=== PATIENT | female | born 1955 | race Caucasian/White ===

== ENCOUNTER 2022-01-16 10:33 | Outpatient (CLI) | payer MEDICARE, BC, SELFPAY | END 2022-01-16 10:34 | disposition home or self-care (01) | LOC: NFLDUCREF 01-26 10:33 | PROVIDERS: Visit Provider Family Medicine | DX: R30.0 Dysuria (principal); N39.0 Urinary tract infection, site not specified | CPT/HCPCS: 87086; 87186 ==

== ENCOUNTER 2023-07-04 04:41 | Emergency (ER) | payer MEDICARE, BC, SELFPAY ==
[2023-07-04] VITALS (37 sets, daily range): BP systolic 112–155; BP diastolic 71–91; PULSE 60–80; RESP 12–18; TEMP 36.1–37.2; O2SAT 86–100; BMI 30.1
[2023-07-04 05:04] LABS: Appearance Urine Clear (Clear); Bilirubin Urine Negative (Negative); Blood Urine Trace-intact (Negative); Color Urine Yellow (Yellow); Glucose Urine Negative (Negative); Ketones Urine Negative (Negative); Leukocyte Esterase Urine Negative (Negative); Nitrite Urine Negative (Negative); Protein Urine Negative (Negative); Specific Gravity Urine 1.025 (1.000-1.030); Urobilinogen Urine 0.2 (0.2-1.0)
--- NOTE | 2023-07-04 05:07 | ED.ABDPAIN ---
HPI - Abdominal Pain General Date Seen: 07/04/23 Chief Complaint: Abdominal Pain Stated Complaint: Abdominal Pain Time Seen by Provider: 07/04/23 05:04 Source: patient and family Mode of arrival: ambulatory Limitations: no limitations History of Present Illness HPI narrative: Patient is a 59-year-old female presents here with approximately 6- 7 hour history of epigastric discomfort. She noted nausea but no vomiting. Pain is described as colicky in nature tenderness 10 it sometimes, but rate now 5/10. No radiation to her back, feels almost like heartburn also. Some mild chest pressure associated with this. Never before had pain like this, multiple previous abdominal operations with laparoscopy, appendectomy, vaginal hysterectomy, denies fevers chills or sweats, no dysuria frequency, bowel movements have been loose. Here with her . Does note she becomes very constipated with narcotic medication. History of hypertension, history of arthritis, history of depression. MD elicited complaint: abdominal pain Pertinent past history: past UTI Onset (ago): hour(s) Location: epigastric Severity: moderate Quality: cramping Radiation: none Migration to: no migration Exacerbating factors: nothing Relieving factors: nothing Associated symptoms: nausea Treatments prior to arrival: other (A my occurs all and Tums.) Related Data Patient : No Home Medications ?Medication ?Instructions ?Recorded ?Confirmed escitalopram oxalate 20 mg tablet 20 mg PO 01/16/22 01/16/22 gabapentin 100 mg capsule 300 mg PO QDAY 04/12/22 04/12/22 [id number] C-Mn 500 1 cap PO QDAY 04/12/22 04/12/22 mg-400 mg capsule triamterene 37.5 1 tab PO QDAY 04/12/22 04/12/22 mg-hydrochlorothiazide 25 mg tablet Previous Rx's ?Medication ?Instructions ?Recorded benzonatate 200 mg capsule 200 mg PO BID-TID PRN cough #14 04/12/22 caps Allergies Allergy/AdvReac Type Severity Reaction Status Date / Time No Known Drug Allergies Allergy Verified 04/12/22 12:07 Review of Systems Status of ROS Reports: 10 or more systems reviewed and unremarkable except as noted in History and below PFSH PFSH Social History Smoking Status: Never smoker Non-prescribed substance use: denies use Exam Narrative: Exam Narrative: I see her in room 3, she is in moderate distress, no scleral icterus redness, alert oriented x3. TMs are normal oropharynx normal. Chest is good air entry bilaterally with no wheezing crackles noted heart sounds are normal. Abdomen shows epigastric/right upper quadrant pain with a positive Colon sign, bowel sounds are normal, no organomegaly, obese. Moves all extremities independently well. Skin reveals no petechiae. Const: Vital Signs, click to edit/add: Vital Signs - 24 hr 07/04/23 04:52 07/04/23 06:06 07/04/23 06:07 Temperature 97 F L Pulse Rate 67 65 Pulse Rate [Pulse Oximeter] 70 Respiratory Rate 16 16 Blood Pressure 140/86 H Blood Pressure [Ri ght Upper Arm] 134/83 Pulse Oximetry 97 97 97 Oxygen Delivery Me thod Room Air Oxygen Flow Rate 07/04/23 06:15 07/04/23 06:16 07/04/23 06:30 Temperature Pulse Rate 65 67 63 Pulse Rate [Pulse Oximeter] Respiratory Rate 16 Blood Pressure 149/91 H Blood Pressure [Ri ght Upper Arm] Pulse Oximetry 86 L 97 98 Oxygen Delivery Me thod Nasal Cannula Nasal Cannula Oxygen Flow Rate 2 2 07/04/23 06:32 07/04/23 06:45 07/04/23 06:47 Temperature Pulse Rate 63 75 70 Pulse Rate [Pulse Oximeter] Respiratory Rate 16 18 Blood Pressure 155/90 H 132/81 Blood Pressure [Ri ght Upper Arm] Pulse Oximetry 94 95 96 Oxygen Delivery Me thod Nasal Cannula Nasal Cannula Nasal Cannula Oxygen Flow Rate 2 2 2 07/04/23 06:49 07/04/23 07:02 07/04/23 07:17 Temperature Pulse Rate 60 69 Pulse Rate [Pulse Oximeter] Respiratory Rate Blood Pressure 142/83 H 138/79 Blood Pressure [Ri ght Upper Arm] Pulse Oximetry 96 99 98 Oxygen Delivery Me thod Nasal Cannula Oxygen Flow Rate 2 07/04/23 07:32 07/04/23 07:38 07/04/23 07:44 Temperature Pulse Rate 62 66 68 Pulse Rate [Pulse Oximeter] Respiratory Rate Blood Pressure 144/80 H 143/82 H 129/77 Blood Pressure [Ri ght Upper Arm] Pulse Oximetry 98 98 96 Oxygen Delivery Me thod Oxygen Flow Rate 07/04/23 07:47 07/04/23 07:56 07/04/23 08:02 Temperature Pulse Rate 67 64 65 Pulse Rate [Pulse Oximeter] Respiratory Rate Blood Pressure 136/80 137/76 130/77 Blood Pressure [Ri ght Upper Arm] Pulse Oximetry 96 98 99 Oxygen Delivery Me thod Oxygen Flow Rate 07/04/23 08:03 07/04/23 08:12 Temperature 98.9 F Pulse Rate 65 Pulse Rate [Pulse Oximeter] Respiratory Rate 12 Blood Pressure Blood Pressure [Ri ght Upper Arm] Pulse Oximetry 100 Oxygen Delivery Me thod Oxygen Flow Rate Documenting provider has reviewed patient's vital signs: yes Course Reevaluation(s) Time of Reevaluation #1: 05:44 Reevaluation #1: Patient's point of care troponin is markedly elevated at 0.12, he point of care ultrasound is done. She appears to have wall motion abn of her apical area. No pericardial effusion. She does have cholelithiasis, but a negative sonographic Colon sign is noted. We will add in a lab troponin, D-dimer, coags, she has received the Dilaudid her pain is much better, given her aspirin also. Nitroglycerin. Starting heparin. It appears that this is an NSTEMI. I will contact Cardiology at [facility]. Time of Reevaluation #2: 06:48 Reevaluation #2: Patient's pain came back, she received Dilaudid nitroglycerin, her pain decreased. Her oxygen briefly went down to 86%, she is placed on nasal oxygen. Troponin has risen 2.3 on the lab troponin. Repeat EKG now 3. Shows no acute ST wave changes. Just some nonspecific ST wave changes. This is consistent with an NSTEMI. She remains on heparin. Time of Reevaluation #3: 08:14 Reevaluation #3: Patient continued to have chest pain, spoke to cardiology at [facility], we were able to get her a bed, we will go up in the nitroglycerin to 20 mcg, gave her little bit more Dilaudid. And transfer up here for acute coronary intervention Consultations Consultation #1: I spoke to Dr. Leung locksmith helper [facility] he accepted the patient in transfer with a diagnosis of an NSTEMI. Currently [place] has the 1-8 hour wait. Patient is markedly improved with medications currently with pain going from approximately an 8 to a 4. Time: 05:57 Vital Signs Vital signs: Initial Vital Signs Temperature 97 F L 07/04/23 04:52 Temperature Source Temporal Artery Scan 07/04/23 04:52 Pulse Rate 70 07/04/23 04:52 Respiratory Rate 16 07/04/23 04:52 Blood Pressure 134/83 07/04/23 04:52 Blood Pressure Mean 100 07/04/23 04:52 Blood Pressure Position Sitting 07/04/23 04:52 Pulse Oximetry 97 07/04/23 04:52 Oxygen Delivery Method Room Air 07/04/23 04:52 Vital Signs Temperature 97 F L 07/04/23 04:52 Pulse Rate 70 07/04/23 04:52 Respiratory Rate 16 07/04/23 04:52 Blood Pressure 134/83 07/04/23 04:52 Pulse Oximetry 97 07/04/23 04:52 Oxygen Delivery Method Room Air 07/04/23 04:52 Temperature 98.9 F 07/04/23 08:12 Pulse Rate 65 07/04/23 08:03 Respiratory Rate 12 07/04/23 08:12 Blood Pressure 130/77 07/04/23 08:02 Pulse Oximetry 100 07/04/23 08:03 Oxygen Delivery Method Nasal Cannula 07/04/23 06:49 Oxygen Flow Rate 2 07/04/23 06:49 Medications Administered Medications: Generic Name Dose Route Start Last Admin Trade Name Freq PRN Reason Stop Dose Admin Heparin Sodium/Dextrose 25,000 unit in 500 mls @ 0 mls/hr 07/04/23 05:45 07/04/23 05:54 Heparin IV 900 unit/hr .Q0M PHUC 18 mls/hr Administration Protocol Per Protocol Nitroglycerin/Dextrose 25,000 mcg in 250 mls @ 3 mls/hr 07/04/23 07:49 07/04/23 07:55 Nitroglycerin/Dextrose IVPB 5 mcg/min .TITRATE PRN 3 mls/hr Chest Pain Administration Protocol 5 MCG/MIN Discontinued Medications Generic Name Dose Route Start Last Admin Trade Name Freq PRN Reason Stop Dose Admin Aspirin 324 mg 07/04/23 05:26 07/04/23 05:30 Aspirin 81 Mg Tab.Chew PO 07/04/23 05:27 324 mg ONCE ONE Administration Heparin Sodium (Porcine) 4,000 unit 07/04/23 05:41 07/04/23 05:53 Heparin 5,000 Unit/0.5 Ml Inj IVP 07/04/23 05:42 4,000 unit ONCE ONE Administration Hydromorphone HCl 0.5 mg 07/04/23 05:04 07/04/23 05:29 Hydromorphone 0.5 Mg/0.5 Ml Inj IVP 07/04/23 05:05 0.5 mg ONCE ONE Administration Hydromorphone HCl 0.5 mg 07/04/23 07:48 07/04/23 07:57 Hydromorphone 0.5 Mg/0.5 Ml Inj IVP 07/04/23 07:49 0.5 mg ONCE ONE Administration Sodium Chloride 1,000 mls @ 1,000 mls/hr 07/04/23 05:15 07/04/23 06:40 0.9 % Sodium Chloride 1000 Ml IV 07/04/23 06:14 Infused .Q1H PHUC Infusion Nitroglycerin 0.4 mg 07/04/23 05:26 07/04/23 05:30 Nitroglycerin 0.4 Mg Tab.Subl SUBLINGUAL 07/04/23 05:27 0.4 mg ONCE ONE Administration Nitroglycerin 0.4 mg 07/04/23 06:50 07/04/23 06:41 Nitroglycerin 0.4 Mg Tab.Subl SUBLINGUAL 07/04/23 06:51 0.4 mg ONCE ONE Administration Ondansetron HCl 4 mg 07/04/23 05:04 07/04/23 05:29 Ondansetron 2 Mg/Ml Inj IVP 07/04/23 05:05 4 mg ONCE ONE Administration MDM - Abdominal Pain MDM Narrative Medical decision making narrative: During the evaluation of this patient I considered multiple differential diagnosis including life-threatening differentials which are appendicitis, aortic aneurysm, mesenteric ischemia, bowel perforation, ectopic , volvulus and bowel obstruction, other differential diagnosis include but are not limited to inflammatory bowel disease, cholecystitis, pancreatitis, hepatitis, gastritis, GERD, diverticulitis, peptic ulcer disease, pyelonephritis/UTI, renal colic/stone, pelvic inflammatory disease, cervicitis, endometritis, intrauterine , dysfunctional uterine bleeding, ovarian cyst/torsion, spontaneous as well as other etiologies IV will be started, blood test Dilaudid and Zofran will be used. Unfortunately her troponin came back markedly elevated, we had to switch gears. I think she is more likely as NSTEMI at this point. Differential Diagnosis Differential diagnosis: Likely abdominal pain, acute appendicitis, calculus of kidney, constipation, diverticulitis, endometriosis, gastroenteritis, pancreatitis and small bowel obstruction Medical Records Attestation: I reviewed the patient's medical records. Lab Data Attestation: I reviewed the patient's lab results. Labs: Lab Results 07/04/23 07/04/23 07/04/23 Range/Units 04:50 05:05 05:42 WBC 10.72 (4.50-11.00) K/uL RBC 4.56 (4.00-5.20) m/uL Hgb 14.3 (12.0-16.0) gm/dL Hct 42.3 (33.0-51.0) % MCV 93 (80-100) fL MCH 31 (26-34) pg MCHC 34 (32-36) gm/dL RDW Coeff of Tomas 12.2 (11.5-15.5) % Plt Count 272 (140-440) K/uL Neut % (Auto) 78.2 H (42.0-72.0) % Lymph % (Auto) 16.4 L (20-44) % [place] % (Auto) 3.5 (0.0-11.0) % Eos % (Auto) 1.6 (0.0-7.0) % Baso % (Auto) 0.2 (0.0-3.0) % Neut # (Auto) 8.40 H (1.7-7.0) K/uL Lymph # (Auto) 1.80 (0.90-2.90) K/uL [place] # (Auto) 0.40 (0.00-0.90) K/UL Eos # (Auto) 0.17 (0.00-0.50) K/uL Baso # (Auto) 0.02 (0.00-0.30) K/uL Abs Immat Gran (auto) 0.01 (0.00-0.30) K/uL Imm/Tot Granulo (auto) 0.1 % APTT 30 (23-33) Seconds D-Dimer Quant (PE/DVT) 0.87 H (0.00-0.50) ug/ml Sodium 136 (135-149) mmol/L Potassium 3.6 (3.6-5.1) mmol/L Chloride 106 (96-114) mmol/L Carbon Dioxide 23 (20-32) mmol/L Anion Gap 7 (7-15) mEq/L BUN 14 (7-30) mg/dL Creatinine 0.6 (0.5-1.5) mg/dL Estimated Creat Clear 44.54 Estimated GFR 98 ml/min Glucose 185 H (60-115) mg/dL Calcium 9.8 (8.4-10.6) mg/dL Total Bilirubin 0.6 (0.1-1.5) mg/dL Direct Bilirubin 0.0 (0.0-0.5) mg/dL AST 26 (12-35) U/L ALT 23 (4-35) U/L Alkaline Phosphatase 88 (40-150) U/L Troponin I 0.30 H* Cancelled (0.01-0.04) ng/mL C-Reactive Protein 0.9 (0.5-1.0) mg/dL Total Protein 7.3 (6.0-8.3) g/dL Albumin 4.4 (3.3-5.0) g/dL Amylase 76 (18-89) U/L Lipase 154 (23-300) U/L Urine Color Yellow (Yellow) Urine Appearance Clear (Clear) Urine pH 6.0 (5.0-8.5) Ur Specific [place] 1.025 (1.000-1.030) Urine Protein Negative (Negative) Urine Glucose (UA) Negative (Negative) Urine Ketones Negative (Negative) Urine Blood Trace-intact A (Negative) Urine Nitrite Negative (Negative) Urine Bilirubin Negative (Negative) Urine Urobilinogen 0.2 (0.2-1.0) Ur Leukocyte Esterase Negative (Negative) Urine RBC 0-2 (0-2) Urine WBC 2-5 (0-5) Ur Squamous Epith Cells Few (None-Few) Amorphous Sediment Few A (None) Urine Bacteria Few A (None) POC Troponin I 0.12 H (0.01-0.04) ng/ml Imaging Data Chest x-ray: Attestation: I have reviewed the pertinent imaging results. My impression: Chest x-ray shows no acute findings awaiting Radiology over-read. ECG Data Attestation: I personally reviewed and interpreted this ECG as follows: ECG interpretation date: 07/04/23 ECG interpretation time: 05:11 Prior ECG tracings: not available for review Interpretation: EKG shows normal sinus rhythm, with a ventricular rate of 70, no acute ST wave changes EKG 2. Done 1 hour after being here continues to be normal sinus rhythm with no acute changes. Critical Care Time Critical Care Time Critical Care Time: Yes Attestation: The patient required my highest level preparedness to intervene emergently and I personally spent this critical care time directly and personally managing the patient. This critical care time included: Obtaining a history; Examining the patient; Pulse oximetry; Ordering and reviewing of studies; Arranging urgent treatment with development of a management plan; Evaluation of patients response to treatment; Frequent reassessment discussions with other providers. This critical care time was performed to assess and manage the high probability of imminent life-threatening deterioration that could result in multiorgan failure. It was exclusive of separate billable procedures and treating other patients and teaching time. Total Critical Care Time in Minutes: 45 Discharge Plan Discharge Clinical Impression: Elevated troponin, Acute non-ST elevation myocardial infarction (NSTEMI), Cholelithiasis Patient Disposition: Xfer [facility] Discharge Location: [facility] Condition: Guarded Instructions: High Troponin Levels (ED) Prescriptions: No Action escitalopram oxalate 20 mg tablet 20 mg PO Patient Comments: TAKE ONE TABLET BY MOUTH ONE TIME DAILY gabapentin 100 mg capsule 300 mg PO QDAY Patient Comments: TAKE TWO CAPSULES BY MOUTH THREE TIMES DAILY benzonatate 200 mg capsule 200 mg PO BID-TID PRN (Reason: cough) Qty: 14 0RF triamterene-hydrochlorothiazid 37.5-25 mg tablet 1 tab PO QDAY [id number] C-Mn 500-400 mg capsule 1 cap PO QDAY Patient Comments: Glucosamine 1500mg/Chondroitin 1200mg Stand Alone Forms: MyHealth Info Instructions
[2023-07-04 05:12] LABS: Amorphous Sediment Urine Few; Bacteria Urine Few; RBC Urine 0-2 (0-2); Squamous Epithelial Cell Urine Few (None-Few)
[2023-07-04 05:18] LABS: Basophils Absolute Auto 0.02 K/uL (0.00-0.30); Basophils Percent Auto 0.2 % (0.0-3.0); Eosinophils Absolute Auto 0.17 K/uL (0.00-0.50); Eosinophils Percent Auto 1.6 % (0.0-7.0); Hematocrit 42.3 % (33.0-51.0); Hemoglobin* 14.3 gm/dL (12.0-16.0); Immature Granulocytes Abs Auto 0.01 K/uL (0.00-0.30); Immature Granulocytes Pct Auto 0.1 %; Lymphocytes Percent Auto 16.4 % (20-44); Mean Corpuscular HGB Conc 34 gm/dL (32-36); Mean Corpuscular Hemoglobin 31 pg (26-34); Mean Corpuscular Volume 93 fL (80-100); Monocytes Percent Auto 3.5 % (0.0-11.0); Neutrophils Percent Auto 78.2 % (42.0-72.0); Platelet Count* 272 K/uL (140-440); RDW Coefficient of Variation % 12.2 % (11.5-15.5); Red Blood Count 4.56 m/uL (4.00-5.20); White Blood Count* 10.72 K/uL (4.50-11.00)
[2023-07-04 05:22] LABS: Slide Review Reflex No
[2023-07-04 05:23] LABS: Troponin, Point-of-Care* 0.12 ng/ml (0.01-0.04)
--- NOTE | 2023-07-04 05:28 | CRLHL7_ITS ---
For Patients: As a result of the Century Cures Act, medical imaging exams and procedure reports are released immediately into your electronic medical record. You may view this report before your referring provider. If you have questions, please contact your health care provider. Indication: Chest and epigastric pain. Technique: One view(s) of the chest. Comparison: None available. Findings: Normal cardiomediastinal silhouette and pulmonary vasculature. Lungs are well inflated and clear. No focal consolidation, pleural effusion or pneumothorax. No acute osseous abnormality. Impression: No acute cardiopulmonary abnormality identified. Dictated by Sherley Massey MD @ 07/04/2023 6:15:56 AM (Electronically Signed)
[2023-07-04] MEDS: 0.9 % SODIUM CHLORIDE 1000 ml 1,000 ML IV (05:29)
[2023-07-04] MEDS: HYDROmorphone 0.5 mg/0.5 ml inj IVP ×2 (05:29→07:57)
[2023-07-04] MEDS: ONDANSETRON 2 MG/ML inj 4 MG IVP (05:29)
[2023-07-04] MEDS: ASPIRIN 81 MG TAB.CHEW 324 MG PO (05:30)
[2023-07-04] MEDS: NITROGLYCERIN 0.4 MG TAB.SUBL SUBLINGUAL ×3 (05:30→07:37)
[2023-07-04 05:32] LABS: Albumin* 4.4 g/dL (3.3-5.0); Chloride* 106 mmol/L (96-114); Sodium* 136 mmol/L (135-149)
[2023-07-04 05:33] LABS: Potassium* 3.6 mmol/L (3.6-5.1)
[2023-07-04 05:34] LABS: Amylase* 76 U/L (18-89); Creatinine* 0.6 mg/dL (0.5-1.5); Est. Creatinine Clearance* 44.54; Estimated Glomerular Filt Rate 98 ml/min
[2023-07-04 05:35] LABS: Alanine Aminotransferase* 23 U/L (4-35); Alkaline Phosphatase* 88 U/L (40-150); Anion Gap 7 mEq/L (7-15); Aspartate Amino Transferase* 26 U/L (12-35); Bilirubin Total* 0.6 mg/dL (0.1-1.5); Blood Urea Nitrogen* 14 mg/dL (7-30); Carbon Dioxide* 23 mmol/L (20-32); Glucose* 185 mg/dL (60-115); Lipase* 154 U/L (23-300); Total Protein* 7.3 g/dL (6.0-8.3)
[2023-07-04 05:36] LABS: Calcium* 9.8 mg/dL (8.4-10.6)
[2023-07-04 05:38] LABS: C Reactive Protein* 0.9 mg/dL (0.5-1.0)
[2023-07-04] MEDS: HEPARIN 5,000 UNIT/0.5 ML INJ 4000 UNIT IVP (05:53)
[2023-07-04] MEDS: HEPARIN 25,000 UNIT/500 ML BAG 18 UNIT IV (05:54)
[2023-07-04 06:06] LABS: Partial Thromboplastin Time* 30 Seconds (23-33)
[2023-07-04 06:07] LABS: D Dimer Quantitative* 0.87 ug/ml (0.00-0.50)
[2023-07-04] MEDS: NITROGLYCERIN/DEXTROSE 25,000 MCG/250 ML BOTTLE 3 MCG IVPB (07:55)
== END 2023-07-04 09:16 | disposition short-term general hospital (02) ==
PROVIDERS: Emergency Provider Family Medicine
DX: I21.4 Non-ST elevation (NSTEMI) myocardial infarction (principal)
CPT/HCPCS: 36415; 71045; 80048; 80076; 81001; 82150; 83690; 84484; 85025; 85379; 85730; 86140; 87086; 93005; 96374; 96375; 99285; 99291; A9270; J1170; J1644; J2405; J7030

== ENCOUNTER 2023-07-04 08:57 | Outpatient (CLI) | payer MEDICARE, BC, SELFPAY | END 2023-07-04 08:58 | disposition home or self-care (01) | LOC: AMB 07-11 09:28 | PROVIDERS: Visit Provider Family Medicine | DX: I21.4 Non-ST elevation (NSTEMI) myocardial infarction (principal) | CPT/HCPCS: A0425; A0434 ==

== ENCOUNTER 2023-11-21 16:00 | Outpatient (RCR) | payer MEDICARE, BC, SELFPAY | END 2024-01-24 13:02 | disposition home or self-care (01) | PROVIDERS: Visit Provider Physician Assistant | DX: M54.50 Low back pain, unspecified (principal); M25.552 Pain in left hip; M47.812 Spondylosis without myelopathy or radiculopathy, cervical region; M54.2 Cervicalgia; M25.60 Stiffness of unspecified joint, not elsewhere classified; Z51.89 Encounter for other specified aftercare | CPT/HCPCS: 97110; 97140; 97161; 97162 ==

== ENCOUNTER 2024-03-06 09:10 | Emergency (ER) | payer MEDICARE, BC, SELFPAY ==
[2024-03-06 09:12] VITALS: BP 106/71; PULSE 81; RESP 16; TEMP 36.7; O2SAT 97; BMI 31.5
--- NOTE | 2024-03-06 09:45 | ED.GENADULT ---
HPI - General Adult General Date Seen: 03/06/24 Chief complaint: Chest Pain Stated complaint: Chest pain Time Seen by Provider: 03/06/24 09:28 History of Present Illness HPI narrative: 68-year-old female per the history of NSTEMI (diagnosed in June 2023 here in the ER), hypertension, hyper thyroid without goiter), hyperlipidemia, colon polyps, lumbar stenosis, osteoarthritis, sleep apnea, restless legs, hysterectomy It looks like she gets care through the [facility] system and some care through the [facility] system. I have some records through [facility]. After and STEMI diagnosed here in [facility] in June 2023. She had workup with [facility].On arrival to the [facility] her vitals were within normal limits with the exception of an isolated charted saturation of 88% on room air. She was found to have elevated and rising troponins (0.1 to 0.3, URL 0.04) with normal ECGs. Her chest pain decreased with a nitroglycerin drip. She was given full-dose aspirin, started on a therapeutic heparin drip, and transferred to [facility] for further management. ? On arrival her vitals were within normal limits. She reported 2/10 chest pain that is worse than when she was transferred, which roughly coincided with her nitroglycerin drip running out. HS troponin 101->87. EKG SR w/ t wave inversion V1, V2. Coronary angiogram 07/04 normal cors. TTE LVEF 55-60%, no sig WMA. . She was manage medically. She has had follow-up visits with Cardiology since then. She underwent laparoscopic cholecystectomy on 01/26/2024. She says that she had previously known gallstones and with her symptoms of frequent episodes of right-sided chest pain they just wanted to take her gallstones out so that they would not ever become larger problem. Her pain is really not gotten better since the surgery so it seems like her gallstones were probably not the culprit. She says she has had follow-up ultrasound since the surgery the confirms no residual common bile duct stones. She had a visit with Dr. Kelley on 02/07/2024 for sternal pain. Apparently has been experiencing and some last summer, initially attributed to gallstones. She had had cholecystectomy but pain persists. Pain on the right side of the sternum, worse with pressing. At that time, pain was thought to be due to costochondritis. History from the patient is that she does have episodes of right-sided sternal discomfort almost every day. It has been present for several months or even over a year. In addition to that she has body aches, hip pain, joint aches. She does not regularly take pain meds but did take an oxycodone last night because her hip and leg were hurting her. She was not really having any chest discomfort yesterday evening. She was awoken from sleep at about 5:00 a.m. with a more severe episode of discomfort in her right chest. In addition to being sharp but also felt like a pressure, but not ?like an elephant?. It was associated with dizziness and sweatiness. No nausea. No palpitations. Since it was different and more intense than her typical episodes she called her clinic and was referred here to the ER. She says she is feeling at much better now. Were No new swelling in her legs. No recent travel or immobilization. Her call blow surgery was about 6 weeks ago. Related Data Home Medications ?Medication ?Instructions ?Recorded ?Confirmed escitalopram oxalate 20 mg tablet 20 mg PO 01/16/22 01/16/22 gabapentin 100 mg capsule 300 mg PO QDAY 04/12/22 03/06/24 cytenggpeet-ckwqgwqpu-vjc C-Mn 500 1 cap PO QDAY 04/12/22 04/12/22 mg-400 mg capsule triamterene 37.5 1 tab PO QDAY 04/12/22 04/12/22 mg-hydrochlorothiazide 25 mg tablet amlodipine 2.5 mg tablet 2.5 mg PO DAILY 03/06/24 03/06/24 aspirin 81 mg tablet,delayed 81 mg PO DAILY 03/06/24 03/06/24 release (Adult Aspirin Regimen) metoprolol succinate 25 mg 25 mg PO DAILY 03/06/24 03/06/24 tablet,extended release 24 hr Previous Rx's ?Medication ?Instructions ?Recorded benzonatate 200 mg capsule 200 mg PO BID-TID PRN cough #14 04/12/22 caps Allergies Allergy/AdvReac Type Severity Reaction Status Date / Time rosuvastatin (From Crestor) Allergy Intermediate Verified 03/06/24 11:55 PFSH PFS Social History Smoking Status: Never smoker How often do you have a drink containing alcohol: never How often do you have six or more drinks on one occasion: Never AUDIT-C Alcohol total score: 0 Non-prescribed substance use: denies use service: No Exam Narrative: Exam Narrative: Constitutional: Appears well-developed and well-nourished. Alert. Conversant. Non toxic. HENT: Head: Atraumatic. Nose: Nose normal. Mouth/Throat: Oral mucosa is clear and moist. no trismus. Pharynx normal. Eyes: Conjunctivae normal. EOM normal. Pupils equal, round, and reactive to light. No scleral icterus. Neck: Normal range of motion. Neck supple. No tracheal deviation present. No JVD Cardiovascular: Normal rate, regular rhythm. No gallop. No friction rub. No murmur heard. Symmetric radial and PT artery pulses Pulmonary/Chest: Effort normal. No stridor. No respiratory distress. No wheezes. No rales. No rhonchi . No tenderness. Abdominal: Soft, . No distension. No mass. No tenderness. No rebound. No guarding. Musculoskeletal: RUE: Normal range of motion. No tenderness. No deformity LUE: Normal range of motion. No tenderness. No deformity RLE: Normal range of motion. No edema. No tenderness. No deformity LLE: Normal range of motion. No edema. No tenderness. No deformity Neurological: Alert and oriented to person, place, and time. Normal strength. CN II-VII intact. No sensory deficit. GCS eye subscore is 4. GCS verbal subscore is 5. GCS motor subscore is 6. Normal coordination Skin: Skin is warm and dry. No rash noted. No pallor. Normal capillary refill. Psychiatric: Normal mood. Normal affect. Const: Vital Signs, click to edit/add: Vital Signs - 24 hr 03/06/24 09:12 Temperature 98.1 F Pulse Rate [Pulse Oximeter] 81 Respiratory Rate 16 Blood Pressure [Ri ght Upper Arm] 106/71 Pulse Oximetry 97 Oxygen Delivery Me thod Room Air Course Course ED Course: Recheck-remains comfortable and symptom free. Hemodynamically stable. now her bedside Reevaluation(s) Reevaluation #1: Recheck-repeat troponin back. Discussed troponins and CT findings with the patient. Vital Signs Vital signs: Initial Vital Signs Temperature 98.1 F 03/06/24 09:12 Temperature Source Temporal Artery Scan 03/06/24 09:12 Pulse Rate 81 03/06/24 09:12 Respiratory Rate 16 03/06/24 09:12 Blood Pressure 106/71 03/06/24 09:12 Blood Pressure Mean 82 03/06/24 09:12 Blood Pressure Position Sitting 03/06/24 09:12 Pulse Oximetry 97 03/06/24 09:12 Oxygen Delivery Method Room Air 03/06/24 09:12 Vital Signs Temperature 98.1 F 03/06/24 09:12 Pulse Rate 81 03/06/24 09:12 Respiratory Rate 16 03/06/24 09:12 Blood Pressure 106/71 03/06/24 09:12 Pulse Oximetry 97 03/06/24 09:12 Oxygen Delivery Method Room Air 03/06/24 09:12 Temperature 98.1 F 03/06/24 09:12 Pulse Rate 81 03/06/24 09:12 Respiratory Rate 16 03/06/24 09:12 Blood Pressure 106/71 03/06/24 09:12 Pulse Oximetry 97 03/06/24 09:12 Oxygen Delivery Method Room Air 03/06/24 09:12 Medications Administered Medications: Discontinued Medications Generic Name Dose Route Start Last Admin Trade Name Lukaszq PRN Reason Stop Dose Admin Aspirin 162 mg 03/06/24 10:09 03/06/24 10:17 Aspirin 81 Mg Tab.Chew PO 03/06/24 10:10 162 mg ONCE ONE Administration Medical Decision Making MDM Narrative Medical decision making narrative: This patient presents to the ER today for evaluation of chest pain[]. Differential was broad. No evidence of palpitations, syncope or other cardiac dysrhythmia. We considered possible ACS, however workup with EKG and troponin is negative. Given time since onset of symptoms, we did check 2 hour delta troponins. I do not think the patient needs to be admitted for further sets of enzymes. EKG shows no evidence for pericarditis. Clinical presentation not suggestive of myocarditis. Chest x-ray shows no evidence for pneumonia, pneumothorax, pulmonary edema, pleural effusion, rib fracture, cardiomegaly. We considered PE for this patient. Her only risk factor would be recent surgery for gallbladder about 6 weeks ago. Abnormal age adjusted D-dimer prompted CT pulmonary angiogram. CT is negative for PE. It does reveal some aortic ectasia (no evidence for dissection or rupture). This was previously known to the patient. She is provided with digital copies of her CT imaging will follow-up with her PCP for comparison. Will need surveillance of the aortic ectasia going forward. I do not think that her pain represents an acute aortic emergency today. Mediastinum is normal on the x-ray. The patient has no ripping or tearing pain through to the back and has symmetric pulses on exam, no other acute neuro findings so I doubt aortic dissection. Risk of radiation and repeat contrast exposure would outweigh the benefit of CT angiogram. No wheezing or bronchospasm to suggest COPD/asthma. No signs of chest wall cellulitis, shingles, injury. It is possible that her pain could be related to costochondritis. She has been having episodes of pain almost every day for several months. Also consider possible esophagitis. She will follow-up with her PCP and consider arranging outpatient EGD. With reasonable clinical confidence, I think the patient is safe for outpatient follow up. Discussed return precautions. Questions answered. Patient voices comfort with the plan. Lab Data Labs: Lab Results 03/06/24 03/06/24 03/06/24 Range/Units 10:10 10:25 12:30 D-Dimer Quant (PE/DVT) 0.79 H (0.00-0.50) ug/ml Sodium 139 (135-149) mmol/L Potassium 4.2 (3.6-5.1) mmol/L Chloride 107 (96-114) mmol/L Carbon Dioxide 25 (20-32) mmol/L Anion Gap 7 (7-15) mEq/L BUN 18 (7-30) mg/dL Creatinine 0.6 (0.5-1.5) mg/dL Estimated Creat Clear 43.92 Estimated GFR 97 ml/min Glucose 115 (60-115) mg/dL Calcium 9.3 (8.4-10.6) mg/dL Total Bilirubin 0.3 (0.1-1.5) mg/dL AST 28 (12-35) U/L ALT 26 (4-35) U/L Alkaline Phosphatase 70 (40-150) U/L Total Protein 6.1 (6.0-8.3) g/dL Albumin 3.9 (3.3-5.0) g/dL Lipase 73 (23-300) U/L POC Troponin I 0.00 L 0.00 L (0.01-0.04) ng/ml Imaging Data CT scan - chest: Attestation: I have reviewed the pertinent imaging results. Radiologist's impression: IMPRESSION: 1. No evidence of acute pulmonary embolus, within limitations of motion artifact. Distal segmental and subsegmental pulmonary arteries are not well evaluated. 2. No focal consolidation. No evidence of pulmonary infarct. 3. Mild cardiomegaly. Ectasia of the ascending thoracic aorta, measuring up to 4.0 cm. Discharge Plan Discharge Clinical Impression: Chest pain, Aortic ectasia, thoracic Patient Disposition: Home, Self-Care Condition: Stable Instructions: Chest Pain (DC) Additional Instructions: As we discussed, so far the workup here chest pain looks reassuring. However, monitor your symptoms carefully and if you have worsening chest pain, nausea or dizziness or shortness of breath, or other concerning symptoms, please come back to the ER right away to be rechecked. Please follow-up with regular doctor within 1 week. Ask your doctor if they think it would be beneficial to have an endoscopy to evaluate your esophagus. Prescriptions: No Action escitalopram oxalate 20 mg tablet 20 mg PO Patient Comments: TAKE ONE TABLET BY MOUTH ONE TIME DAILY gabapentin 100 mg capsule 300 mg PO QDAY Patient Comments: TAKE TWO CAPSULES BY MOUTH THREE TIMES DAILY benzonatate 200 mg capsule 200 mg PO BID-TID PRN (Reason: cough) Qty: 14 0RF triamterene-hydrochlorothiazid 37.5-25 mg tablet 1 tab PO QDAY ckpsehhyquj-rnxdtbwmv-usz C-Mn 500-400 mg capsule 1 cap PO QDAY Patient Comments: Glucosamine 1500mg/Chondroitin 1200mg amlodipine 2.5 mg tablet 2.5 mg PO DAILY metoprolol succinate 25 mg tablet extended release 24 hr 25 mg PO DAILY aspirin [Adult Aspirin Regimen] 81 mg tablet,delayed release (DR/EC) 81 mg PO DAILY Follow Up/Referrals: Cristine Castorena MD [Primary Care Provider] - Stand Alone Forms: MyHealth Info Instructions
[2024-03-06] MEDS: ASPIRIN 81 MG TAB.CHEW 162 MG PO (10:17)
[2024-03-06 10:46] LABS: Albumin* 3.9 g/dL (3.3-5.0); Chloride* 107 mmol/L (96-114); Sodium* 139 mmol/L (135-149)
[2024-03-06 10:47] LABS: Potassium* 4.2 mmol/L (3.6-5.1)
[2024-03-06 10:49] LABS: Alanine Aminotransferase* 26 U/L (4-35); Alkaline Phosphatase* 70 U/L (40-150); Anion Gap 7 mEq/L (7-15); Aspartate Amino Transferase* 28 U/L (12-35); Bilirubin Total* 0.3 mg/dL (0.1-1.5); Blood Urea Nitrogen* 18 mg/dL (7-30); Carbon Dioxide* 25 mmol/L (20-32); Creatinine* 0.6 mg/dL (0.5-1.5); Est. Creatinine Clearance* 43.92; Estimated Glomerular Filt Rate 97 ml/min; Glucose* 115 mg/dL (60-115); Lipase* 73 U/L (23-300); Total Protein* 6.1 g/dL (6.0-8.3)
[2024-03-06 10:50] LABS: Calcium* 9.3 mg/dL (8.4-10.6)
[2024-03-06 10:53] LABS: D Dimer Quantitative* 0.79 ug/ml (0.00-0.50)
--- OUTSIDE RECORDS SUMMARY | 2024-03-07 13:41 | XMS_ITS | Encounter Summary ---
Author Organization [facility] Address [address] [place] [address]. [place] [address] Care Team Providers Care Insurance And Benefits Clerk Name Role Phone Peng Hubbard MD Unavailable [phone] Yamila Joe See Tuan BERRY Unavailable Cristine Castorena MD Primary Care Provider [phone] Yamila Joe See Tuan BERRY Unavailable [phone] Corbin Andre MD Unavailable Yamila Joe See Tuan BERRY Unavailable Valerie Shin MD Unavailable Adrian Martínez MD Unavailable Magdalena Fonseca Unavailable [phone] Adrian Martínez MD Unavailable Reason for Visit * Reason Onset Date Comments Symptoms 06/18/2021 Encounter Details Date Type Department Care Team (Late st Contact Info) Description 06/18/2021 Telephone [facility] [address] [place] [address] Corbin Andre MD [address] [facility] [address] [place] [address] Symptoms Social History Tobacco Use Types Packs/Day Years Used Date Smoking Tobacco: Never Smokeless Tobacco: Never Alcohol Use Standard Drinks/Week Comments Yes 0 (1 standard drink = 0.6 oz pur e alcohol) 2 drinks per month PHQ-2 Answer Date Recorded PHQ-2 Score 0 04/29/2021 Comments No Sex and Gender Information Value Date Recorded Sex Assigned at Female 01/12/2021 8:43 AM PATTERN DESIGNER Legal Sex Female 3:39 AM PATTERN DESIGNER Gender Identity Female 01/12/2021 8:43 AM PATTERN DESIGNER Sexual Orientation Straight 01/12/2021 8: 43 AM PATTERN DESIGNER COVID-19 Exposure Response Date Recorded In the last 10 days, have yo u been in contact with someone who was confirmed or suspected to have Coronavirus/COVID-19? No / Unsure 06/19/2021 10:56 AM CDT documented as of this encounter Miscellaneous Notes * Telephone Encounter - Siomara Diaz CMA - 06/18/2021 9:55 AM CDT LM FOR PT TO CALL BACK. Angelica Diaz CMA * Telephone Encounter - Celia Roblero - 06/18/2021 9:39 AM CDT [facility] Phone Message May a detailed message be left on voicemail: yes Reason for Call: Symptoms or Concerns If patient has red-flag symptoms, warm transfer to triage line Current symptom or concern: Kidney stone removed on 06/12/21. Stent removal scheduled for 06/19/21. Patient is currently having pain on right lower belly. Wondering if this is poking into her bladder wall. When sitting, pain level is at 4, when doing anything else, pain level at 8. Symptoms have been present for: 1 week(s) Has patient previously been seen for this? No Are there any new or worsening symptoms? Yes: lower belly pain Action Taken: Message routed to: [facility] Urology Travel Screening: Not Applicable documented in this encounter Plan of Treatment Upcoming Encounters Date Type Department Care Team (Late st Contact Info) Description 02/18/2025 9:30 AM PATTERN DESIGNER Office Visit [facility] [address] [facility] [address] [place] [phone] Valerie Shin MD [address] [facility] [address] [place] [address] 02/18/2025 10:00 AM PATTERN DESIGNER Ancillary Procedure [facility] [address] [facility], [address] [place] [phone] documented as of this encounter Visit Diagnoses Not on filedocumented in this encounter Additional Health Concerns Assessment Noted Time PHQ-9 Depression Total Score: 4 01/16/20 21 3:10 PM PATTERN DESIGNER documented as of this encounter Care Teams Insurance And Benefits Clerk Relationship Specialty Start Date End Date Cristine Castorena MD [address] [address] PCP - General 04/24/21 [place] [address] [place] [address] Assigned OBGYN Provider 11/30/1901/22 [place] [address] [place] [address] Urology 04/14/21 Yamila Joe MD [address] [place] [address] [address] [place] [address] Assigned Surgical Provider 05/03/21 Corbin Andre MD [address] [place] [address] Assigned Surgical Provider 06/21/2111/28 Yamila Joe MD [address] [facility] [address] [place] [address] Assigned Surgical Provider 07/18/21 Valerie Shin MD [address] [place] [address] Assigned OBGYN Provider 01/23/22 Adrian Martínez MD [address] [facility] [address] [place] [address] Colon & Rectal 02/11/23 Magdalena Fonseca EP [facility] [address] [place] [address] Cardiac Rehabilitation Therapist 08/25/23 08/24/24 Adrian Martínez MD [address] [facility] [address] [place] [address] Assigned Surgical Provider 09/30/23 documented as of this encounter
--- OUTSIDE RECORDS SUMMARY | 2024-03-07 13:41 | XMS_ITS | Encounter Summary ---
Author Organization [facility] Address [address] [place] [address]. [place] [address] Care Team Providers Care Culled Fruit Packer Name Role Phone Peng Hubbard MD Unavailable [phone] Yamila Joe See Tuan BERRY Unavailable Cristine Castorena MD Primary Care Provider [phone] Yamila Joe See Tuan BERRY Unavailable [phone] Corbin Andre MD Unavailable Yamila Joe See Tuan BERRY Unavailable Valerie Shin MD Unavailable Adrian Martínez MD Unavailable Magdalena Fonseca Unavailable [phone] Adrian Martínez MD Unavailable Encounter Details Date Type Department Care Team (Late st Contact Info) Description 06/02/2021 [facility] [place] [facility] Centralized Scheduling [facility] [place] [address] Malachi Howell Social History Tobacco Use Types Packs/Day Years Used Date Smoking Tobacco: Never Smokeless Tobacco: Never Alcohol Use Standard Drinks/Week Comments Yes 0 (1 standard drink = 0.6 oz pur e alcohol) occas PHQ-2 Answer Date Recorded PHQ-2 Score 0 04/29/2021 Comments No Sex and Gender Information Value Date Recorded Sex Assigned at Female 01/12/2021 8:43 AM SIGHTER Legal Sex Female 3:39 AM SIGHTER Gender Identity Female 01/12/2021 8:43 AM SIGHTER Sexual Orientation Straight 01/12/2021 8: 43 AM SIGHTER COVID-19 Exposure Response Date Recorded In the last 10 days, have yo u been in contact with someone who was confirmed or suspected to have Coronavirus/COVID-19? No / Unsure 05/22/2021 10:03 AM CDT documented as of this encounter Plan of Treatment Upcoming Encounters Date Type Department Care Team (Late st Contact Info) Description 02/18/2025 9:30 AM SIGHTER Office Visit [address] [phone] Valerie Shin MD [address] [address] 02/18/2025 10:00 AM SIGHTER Ancillary Procedure [address] [phone] documented as of this encounter Visit Diagnoses Not on filedocumented in this encounter Additional Health Concerns Assessment Noted Time PHQ-9 Depression Total Score: 4 01/16/20 21 3:10 PM SIGHTER documented as of this encounter Care Teams Culled Fruit Packer Relationship Specialty Start Date End Date Cristine Castorena MD [facility] [address] [place] [address] PCP - General 04/24/21 [place] [address] [place] [address] Assigned OBGYN Provider 11/30/1901/22 [place] [address] [place] [address] Urology 04/14/21 Yamila Joe MD [address] [facility] [address] [place] [address] Assigned Surgical Provider 05/03/21 Corbin Andre MD [address] [place] [address] Assigned Surgical Provider 06/21/2111/28 Yamila Joe MD [address] [address] Assigned Surgical Provider 07/18/21 Valerie Shin MD [address] [place] [address] Assigned OBGYN Provider 01/23/22 Adrian Martínez MD [address] [facility] [address] [place] [address] Colon & Rectal 02/11/23 Magdalena Fonseca EP [facility] [address] [place] [address] Cardiac Rehabilitation Therapist 08/25/23 08/24/24 Adrian Martínez MD [address] [facility] [address] [place] [address] Assigned Surgical Provider 09/30/23 documented as of this encounter
--- OUTSIDE RECORDS SUMMARY | 2024-03-07 13:42 | XMS_ITS | Continuity of Care Document ---
Author Organization [facility] Address [address] [place] [address] Phone Care Team Providers Care Banana Loader Name Role Phone Unavailable Unavailable Unavailable Procedures Procedure Date Office/Outpatient Visit,[facility] 2011 Advance Directives Directive Yes / No Effective Date File Name No Information Encounters Encounter Description Practice Location Reason(s) For Visit Diagnoses Date Provider Providers Copied on Encounter [facility], [address], [facility], tel:[phone] [employer] [facility] [place] No Information 9 2 No Information Office/Outpat ient Visit,[facility], [address], [facility], tel:[phone] [facility] [place] No Information [address] [employer], [address] [place] [address], [address], [id number], . tel:[phone] Family History Family Member Type Diagnosis Age At Onset No Information Payers Payer name Insurance type Covered libertarian ID Authoriza tion(s) [employer] [id number] Social History Type Description Quantity Date Captured Comments Sex Female Smoking Status No Information Chief Complaint And Reason For Visit No Information Reason For Referral Reason For Referral No Information History Of Present Illness Encounter Date Complaint History Of Prese nt Illness No Information Functional Status Date Functional Assessmen t No Information Instructions Date Instruction Additional Infor mation No Information Assessments Type Assessment Date No Information Patient Care Teams Name Effective Dates (start - stop) Status Members No Information
--- OUTSIDE RECORDS SUMMARY | 2024-03-07 13:42 | XMS_ITS | Encounter Summary ---
Author Organization [place] Address [facility] [place] [address] Care Team Providers Care Well Head Pumper Name Role Phone Yamila Joe MD Unavailable [phone] Cristine Castorena MD Primary Care Provider [phone] Yamila Joe MD Unavailable Valerie Shin MD Unavailable Adrian Martínez MD Unavailable Magdalena Fonseca Unavailable Adrian Martínez MD Unavailable Encounter Details Date Type Department Care Team (Late st Contact Info) Description 03/02/2022 [facility] [place] [address] [place] [address] [address] [place] [address] Yamila Joe MD 420 [facility] [address] [place] [address] Social History Tobacco Use Types Packs/Day Years Used Date Smoking Tobacco: Never Smokeless Tobacco: Never Alcohol Use Standard Drinks/Week Comments Yes 0 (1 standard drink = 0.6 oz pur e alcohol) 2 drinks per month PHQ-2 Answer Date Recorded PHQ-2 Score 0 01/19/2022 Comments No Sex and Gender Information Value Date Recorded Sex Assigned at Female 01/12/2021 8:43 AM MEAT DRESSER Legal Sex Female 3:39 AM MEAT DRESSER Gender Identity Female 01/12/2021 8:43 AM MEAT DRESSER Sexual Orientation Straight 01/12/2021 8: 43 AM MEAT DRESSER COVID-19 Exposure Response Date Recorded In the last 10 days, have yo u been in contact with someone who was confirmed or suspected to have Coronavirus/COVID-19? Unable to assess 03/02/2022 2:04 PM MEAT DRESSER documented as of this encounter Plan of Treatment Upcoming Encounters Date Type Department Care Team (Late st Contact Info) Description 02/18/2025 9:30 AM MEAT DRESSER Office Visit [address] [phone] Valerie Shin MD [address] [address] 02/18/2025 10:00 AM MEAT DRESSER Ancillary Procedure [facility] [address] [place] [address], [address] [phone] documented as of this encounter Visit Diagnoses Not on filedocumented in this encounter Additional Health Concerns Assessment Noted Time PHQ-9 Depression Total Score: 0 01/20/20 22 9:34 AM MEAT DRESSER documented as of this encounter Care Teams Well Head Pumper Relationship Specialty Start Date End Date Cristine Castorena MD [address] [address] PCP - General 04/24/21 Yamila Joe MD Urology 04/14/21 Yamila Joe MD [address] [place] [address] Assigned Surgical Provider 07/18/21 Valerie Shin MD [address] [facility] [address] [place] [address] Assigned OBGYN Provider 01/23/22 Adrian Martínez MD 420 [facility] [address] [place] [address] Colon & Rectal 02/11/23 Magdalena Fonseca EP [facility] [address] [address] Cardiac Rehabilitation Therapist 08/25/23 08/24/24 Adrian Martínez MD [address] [address] Assigned Surgical Provider 09/30/23 documented as of this encounter
--- OUTSIDE RECORDS SUMMARY | 2024-03-07 13:42 | XMS_ITS | Encounter Summary ---
Author Organization [place] Address [address] [place] [address]. [place] [address] Care Team Providers Care Food Truck Caterer Name Role Phone Yamila Joe MD Unavailable [phone] Cristine Castorena MD Primary Care Provider [phone] Yamila Joe MD Unavailable Valerie Shin MD Unavailable Adrian Martínez MD Unavailable Magdalena Fonseca Unavailable Adrian Martínez MD Unavailable Encounter Details Date Type Department Care Team (Late st Contact Info) Description 06/08/2022 [facility] Medical Advice [facility] [place] [address] [facility] [address] [place] [address] Yamila Schwartz Social History Tobacco Use Types Packs/Day Years Used Date Smoking Tobacco: Never Smokeless Tobacco: Never Alcohol Use Standard Drinks/Week Comments Yes 0 (1 standard drink = 0.6 oz pur e alcohol) 2 drinks per month PHQ-2 Answer Date Recorded PHQ-2 Score 0 01/19/2022 Comments No Sex and Gender Information Value Date Recorded Sex Assigned at Female 01/12/2021 8:43 AM FLOOR GRINDER Legal Sex Female 3:39 AM FLOOR GRINDER Gender Identity Female 01/12/2021 8:43 AM FLOOR GRINDER Sexual Orientation Straight 01/12/2021 8: 43 AM FLOOR GRINDER COVID-19 Exposure Response Date Recorded In the last 10 days, have yo u been in contact with someone who was confirmed or suspected to have Coronavirus/COVID-19? No / Unsure 05/20/2022 10:36 AM CDT documented as of this encounter Plan of Treatment Upcoming Encounters Date Type Department Care Team (Late st Contact Info) Description 02/18/2025 9:30 AM FLOOR GRINDER Office Visit [facility] [address] [place] [address] [place] [phone] Valerie Shin MD [address] [place] [id number] 02/18/2025 10:00 AM FLOOR GRINDER Ancillary Procedure [facility] [address] [place] [address] [place] [phone] documented as of this encounter Visit Diagnoses Not on filedocumented in this encounter Additional Health Concerns Assessment Noted Time PHQ-9 Depression Total Score: 0 01/20/20 9:34 AM FLOOR GRINDER documented as of this encounter Care Teams Food Truck Caterer Relationship Specialty Start Date End Date Cristine Castorena MD [facility] [address] [place] [address] PCP - General 04/24/21 Yamila Joe MD Urology 04/14/21 Yamila Joe MD [address] [place] [address] Assigned Surgical Provider 07/18/21 Valerie Shin MD [address] [place], [place] [address] Assigned OBGYN Provider 01/23/22 Adrian Martínez MD 420 [facility] 195 [place] [address] Colon & Rectal 02/11/23 Magdalena Fonseca EP [facility] [address] [place] [address] Cardiac Rehabilitation Therapist 08/25/23 08/24/24 Adrian Martínez MD [address] [address] Assigned Surgical Provider 09/30/23 documented as of this encounter
--- OUTSIDE RECORDS SUMMARY | 2024-03-07 13:43 | XMS_ITS | Encounter Summary ---
Author Organization [place] Address [address] [place] [address]. [place] [address] Care Team Providers Care Junior Linux Systems Administrator Name Role Phone Yamila Joe MD Unavailable Cristine Castorena MD Primary Care Provider Valerie Shin MD Unavailable Adrian Martínez MD Unavailable Magdalena Fonseca Unavailable Adrian Martínez MD Unavailable Reason for Visit * Reason Comments Follow Up Encounter Details Date Type Department Care Team (Late st Contact Info) Description 02/17/2024 10:30 AM INTEL RECRUITER Office Visit [facility] [place] [address] [phone] Valerie Shin MD [address] [phone] Atrophic vaginitis (Primary Dx); Encounter for breast and pelvic examination Social History Tobacco Use Types Packs/Day Years Used Date Smoking Tobacco: Never Smokeless Tobacco: Never Alcohol Use Standard Drinks/Week Comments Yes 0 (1 standard drink = 0.6 oz pur e alcohol) 2 drinks per month PHQ-2 Answer Date Recorded PHQ-2 Score 1 02/09/2023 Adolescent Education Answer Date Record ed Getting School Help Needed Not on file 11/22 Comments No Sex and Gender Information Value Date Recorded Sex Assigned at Female 01/12/2021 8:43 AM INTEL RECRUITER Legal Sex Female 3:39 AM INTEL RECRUITER Gender Identity Female 01/12/2021 8:43 AM INTEL RECRUITER Sexual Orientation Straight 01/12/2021 8: 43 AM INTEL RECRUITER documented as of this encounter Last Filed Vital Signs Vital Sign Reading Time Taken Comments Blood Pressure 122/78 02/17/2024 10:09 AM INTEL RECRUITER Pulse - - Temperature - - Respiratory Rate - - Oxygen Saturation - - Inhaled Oxygen Concentration - - Weight 83.5 kg (184 lb) 02/17/2024 10:09 AM INTEL RECRUITER Height 162.6 cm (5' 4) 02/17/2024 10:09 AM INTEL RECRUITER Body Mass Index 31.58 02/17/2024 10:09 AM INTEL RECRUITER documented in this encounter Progress Notes * Valerie Shin MD - 02/17/2024 10:30 AM CST Images from the original note were not included. SUBJECTIVE: Naty Biswas is a 68 year old female who presents to clinic today for the following health issue(s): Patient presents with: Follow Up Additional information: Breast and pelvic HPI: Patient had an NSTEMI in June of 2023 and has been receiving care following this. Also was found to have gallstones with subsequent laparoscopic cholecystectomy with Dr. Sainz. Unfortunately, she still endorses some sternal pain that began following NSTEMI in June. She is unsure what this could be, but did consider fibrocystic changes of the right breast. She is also concerned regarding mild weight gain over the past ~8 months, likely 2/2 to glucocorticoids. Lastly, she did mention a remote hx of hemorrhoids that have reoccurred. She is following this with her GI team. No other OB-RECORDS OFFICER related concerns today. We follow her atrophic vaginitis. She denies any current symptoms and would like a refill. No LMP recorded. Patient has had a hysterectomy.. Patient is not sexually active, . Using none for contraception. reports that she has never smoked. She has never used smokeless tobacco. STD testing offered? Declined Health maintenance updated: yes Care Gaps Close care gaps Overdue Never done DEPRESSION ACTION PLAN (Once) Never done RSV VACCINE (1 - Risk 60-74 years 1-dose series) DEC 13 2017 BMP (Yearly) Last completed: Dec 13, 2016 DEC 25 2021 GLUCOSE (Every 3 Years) Last completed: Dec 25, 2018 JAN 15 2022 FALL RISK ASSESSMENT (Yearly) Last completed: Jan 15, 2021 AUG 10 2023 PHQ-9 (Every 6 Months) Last completed: Feb 09, 2023 DEC 26 2023 LIPID (Every 5 Years) Last completed: Dec 25, 2018 FEB 10 2024 MAMMO SCREENING (Yearly) Scheduled for: Feb 17, 2024 Upcoming AUG 09 2024 MEDICARE ANNUAL WELLNESS VISIT (Yearly) Last completed: Aug 10, 2023 JUL 01 2026 ADVANCE CARE PLANNING (Every 5 Years) Last completed: July 01, 2021 JUN 10 2031 COLORECTAL CANCER SCREENING (COLONOSCOPY) (Every 10 Years) Last completed: June 09, 2021 OCT 20 2031 DTAP/TDAP/TD IMMUNIZATION (4 - Td or Tdap) Last completed: Oct 19, 2021 JAN 16 2036 DEXA (Every 15 Years) Last completed: Jan 15, 2021 Today's PHQ-2 Score: 02/09/2023 10:29 AM PHQ-2 (??1998 Pfizer) Q1: Little interest or pleasure in doing things 0 Q2: Feeling down, depressed or hopeless 1 PHQ-2 Score 1 Today's PHQ-9 Score: 02/09/2023 10:29 AM PHQ-9 SCORE PHQ-9 Total Score 1 Today's STEVEN-7 Score: 02/09/2023 10:29 AM STEVEN-7 SCORE Total Score 1 Problem list and histories reviewed & adjusted, as indicated. Additional history: as documented. Patient Active Problem List Diagnosis Arthritis History of hysterectomy including cervix Past Surgical History: Procedure Laterality Date ankle rplacement 2014 left ANKLE SURGERY APPENDECTOMY ARTHROPLASTY ANKLE 07/17/2012 Procedure: ARTHROPLASTY ANKLE; LEFT TOTAL ANKLE (Toreulaliaer FLORENTIN)^; Surgeon: Enrique Parisi MD;Location: [facility] ARTHROSCOPY KNEE COLONOSCOPY 2000 CYSTOSCOPY CYSTOSCOPY, DILATE URETHRA, COMBINED 1987 D & C 1989 failed AB HEMORRHOIDECTOMY 2000 HYSTERECTOMY VAGINAL, BILATERAL SALPINGO-OOPHERECTOMY, COMBINED 1999 HYSTERECTOMY, PAP NO LONGER INDICATED LAPAROSCOPY DIAGNOSTIC (RECORDS OFFICER) for endometriosis x5 LASER HOLMIUM LITHOTRIPSY URETER(S), INSERT STENT, COMBINED Right 06/12/2021 Procedure: Cystoscopy, right retrograde pyelogram, interpretation of fluoroscopic images, right ureteroscopy with holmium laser lithotripsy and stone basketing, placement of 5 x 24 double-J right ureteral stent.; Surgeon: Corbin Andre MD; Location: [facility] LASIK 2003 TONSILLECTOMY 1986 [facility] ANESTH,NERVE BLOCKS/INJECTIONS,PRONE L4-5 and S1 Social History Tobacco Use Smoking status: Never Smokeless tobacco: Never Substance Use Topics Alcohol use: Yes Comment: 2 drinks per month Problem (# of Occurrences) Relation (Name,Age of Onset) Hypertension (2) Mother, Father Breast Cancer (1) Mother (76) Prostate Cancer (1) Brother Endometrial Cancer (1) Mother Kidney Cancer (1) Father Lung Cancer (2) Mother (87), Sister: at 72 Current Outpatient Medications Medication Sig Dispense Refill [START ON 02/20/2024] estradiol (ESTRACE VAGINAL) 0.1 MG/GM vaginal cream Place 1 g vaginally twice a week. 42.5 g 3 Elqzdobty-Thssrfovrpd-Iyc D (GLUCOSAMINE COMPLEX PO) Take 1 capsule by mouth daily Calcium Carbonate-Vitamin D (CALCIUM + D PO) Take 1 capsule by mouth daily cetirizine (ZYRTEC) 10 MG CHEW Take by mouth daily. clindamycin (CLEOCIN T) 1 % external lotion Apply topically 2 times daily desonide (DESOWEN) 0.05 % external ointment Apply topically as needed (apply to face and nose prn) emollient (VANICREAM) external cream Apply topically as needed for other escitalopram (LEXAPRO) 20 MG tablet Take 1 tablet (20 mg) by mouth daily 90 tablet 3 fluticasone (FLONASE) 50 MCG/ACT nasal spray [place] 1 spray into both nostrils once daily. 16 g 11 gabapentin (NEURONTIN) 100 MG capsule Take 2 capsules (200 mg) by mouth 3 times daily 360 capsule 3 pimecrolimus (ELIDEL) 1 % external cream Apply topically as needed Apply to eyelids prn TRIAMCINOLONE ACETONIDE EX Externally apply topically as needed triamterene-HCTZ (DYAZIDE) 37.5-25 MG capsule Take 1 capsule by mouth daily 90 capsule 3 No current facility-administered medications for this visit. Allergies Allergen Reactions Dust Mites Mold Pollen Extract Seasonal Allergies ROS: 12 point review of systems negative other than symptoms noted below or in the HPI. No urinary frequency or dysuria, bladder or kidney problems OBJECTIVE: BP 122/78 Ht 1.626 m (5' 4) Wt 83.5 kg (184 lb) BMI 31.58 kg/m?? Body mass index is 31.58 kg/m??. Exam: Constitutional: Appearance: Well nourished, well developed alert, in no acute distress Neck: Lymph Nodes: No lymphadenopathy present; Thyroid: Gland size normal, nontender, no nodules ormasses present on palpation Chest: Respiratory Effort: Breathing unlabored. Clear to auscultation bilaterally. Cardiovascular: Heart: Auscultation: Regular rate, normal rhythm, no murmurs present Breasts: Inspection of Breasts: Symmetric bilaterally. No puckering. No skin changes. Palpation of Breasts and Axillae: No masses present on palpation, no breast tenderness Axillary Lymph Nodes: No lymphadenopathy present Gastrointestinal: Abdominal Examination: Abdomen nontender to palpation, tone normal without rigidity or guarding, no masses present, umbilicus without lesions; Liver/Spleen: No hepatomegaly present,liver nontender to palpation; Hernias: No hernias present Skin: General Inspection: No rashes present, no lesions present, no areas of discoloration. Psychiatric: Mentation appears normal and affect normal/bright. Pelvic Exam: External Genitalia: Normal appearance for age, no discharge present, no tenderness present, no inflammatory lesions present, color normal Vagina: Normal vaginal vault without central or paravaginal defects, no discharge present, no inflammatory lesions present, no masses present Bladder: Nontender to palpation Urethra: Urethral Body: Urethra palpation normal, urethra structural support normal Urethral Meatus: No erythema or lesions present Cervix: Surgically absent Uterus: Surgically absent Adnexa: Surgically absent Perineum: Perineum within normal limits, no evidence of trauma, no rashes or skin lesions present Anus: Anus within normal limits, hemorrhoids present Inguinal Lymph Nodes: No lymphadenopathy present In-Clinic Test Results: No results found for this or any previous visit (from the past 24 hours). ASSESSMENT/PLAN: ICD-10-CM 1. Atrophic vaginitis N95.2 estradiol (ESTRACE VAGINAL) 0.1 MG/GM vaginal cream 2. Encounter for breast and pelvic examination Z01.419 CERV/VAG CANC SCRN,PELV/BREAST EXAM Exam is normal today. Will refill vaginal estradiol. Mammogram after appointment today Follow-up in 1 year Valerie Shin MD [facility] [place] L RECRUITER documented in this encounter Plan of Treatment Upcoming Encounters Date Type Department Care Team (Late st Contact Info) Description 02/18/2025 9:30 AM INTEL RECRUITER Office Visit [facility] [address] [place] [address] [address] [phone] Valerie Shin MD [address] [place] [address] 02/18/2025 10:00 AM INTEL RECRUITER Ancillary Procedure [address] [place] [phone] documented as of this encounter Procedures Procedure Name Priority Date/Time Associated Diagnosis Comments AL CERV/VAG CANC SCRN,PELV/BREAST EXAM Routine 02/17/2024 11:53 AM INTEL RECRUITER Encounter for breast and pelvic examination documented in this encounter Visit Diagnoses Diagnosis Atrophic vaginitis- Primary Postmenopausal atrophic vaginitis Encounter for breast and pelvic examination documented in this encounter Additional Health Concerns Assessment Noted Time PHQ-9 Depression Total Score: 1 02/09/19 24 10:29 AM INTEL RECRUITER documented as of this encounter Care Teams Junior Linux Systems Administrator Relationship Specialty Start Date End Date Cristine Castorena MD [facility] [address] [place] [address] PCP - General 04/24/21 Yamila Joe MD Urology 04/14/21 Valerie Shin MD [address] [place] [address] Assigned OBGYN Provider 01/23/22 Adrian Martínez MD [address] [place] [address] [address] [place] [address] Colon & Rectal 02/11/23 Magdalena Fonseca EP [facility] [address] [place] [address] Cardiac Rehabilitation Therapist 08/25/23 08/24/24 Adrian Martínez MD [address] [address] Assigned Surgical Provider 09/30/23 documented as of this encounter
--- OUTSIDE RECORDS SUMMARY | 2024-03-07 13:43 | XMS_ITS | Referral Summary ---
Author Organization [facility] Address [address] [place] [address]. [place] [address] Care Team Providers [facility] Counsel[facility] Director Name Role Phone Yamila Joe MD Unavailable [phone] Cristine Castorena MD Primary Care Provider Valerie Shin MD Unavailable Adrian Martínez MD Unavailable Magdalena Fonseca Unavailable [phone] Adrian Martínez MD Unavailable Encounters Date Type Department Care Team Description 02/17/2024 Travel 02/17/2024 11:30 AM BILLBOARD ERECTOR HELPER Ancillary Procedure [address] [place] [phone] Visit for screening mammogram 02/17/2024 10:30 AM BILLBOARD ERECTOR HELPER Office Visit [address] [phone] Valerie Shin MD Atrophic vaginitis (Primary Dx); Encounter for breast and pelvic examination 02/12/2024 Travel from Last 3 Months Allergies Active Allergy Reactions Criticality Noted Date Comments Dust Mites 12/05/2014 Mold 12/05/2014 Pollen Extract 12/05/2014 Seasonal Allergies 07/14/2012 Medications cetirizine (ZYRTEC) 10 MG CHEW Take by mouth daily. Active [place]wellia-Gluc osamine-Vit D (GLUCOSAMINE COMPLEX PO) Take 1 capsule by mouth daily Active Calcium Carbonate-Thea min D (CALCIUM + D PO) Take 1 capsule by mouth daily Active desonide (DESOWEN) 0.05 % external ointment Apply topically as needed (apply to face and nose prn) Active TRIAMCINOLONE ACETONIDE EX Externally apply topically as needed Active emollient (VANICREAM) external cream Apply topically as needed for other Active clindamycin (CLEOCIN T) 1 % external lotion Apply topically 2 times daily Active pimecrolimus (ELIDEL) 1 % external cream Apply topically as needed Apply to eyelids prn Active gabapentin (NEURONTIN) 100 MG capsuleIndicat ions:Restless leg syndrome Take 2 capsules (200 mg) by mouth 3 times daily 360 capsule 3 2 Active escitalopram (LEXAPRO) 20 MG tabletIndicati ons: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 16 g 11 4 Active estradiol (ESTRACE VAGINAL) 0.1 MG/GM vaginal creamIndicatio ns:Atrophic vaginitis Place 1 g vaginally twice a week. 42.5 g 3 5 Active estradiol (ESTRACE VAGINAL) 0.1 MG/GM vaginal creamIndicatio ns:Atrophic vaginitis Place 1 g vaginally twice a week 42.5 g 3 4 02/16/19 25 Discontinu ed(Reorder (No AVS)) Active Problems Problem Noted Date Diagnosed Date History of hysterectomy including cervix 017 Overview (01/23/2020): Pap smears no longer indicated. 2000- total laparoscopic hysterectomy for endometriosis. '13, '14, '15, '16 NIL vaginal paps 2016, 2017 NIL/NEg HPV of vaginal cuff Plan: Annual pelvic exam. 12/20/18 (age 63) Vaginal pap: NIL/neg HR HPV. Her last Pap smear will be at 64. -Peng Jean MD 01/14/20 NIL vaginal pap, Neg HPV, age 64. Plan no further pap screening per provider visit notes. Arthritis 07/17/2012 Immunizations Name Administration Dates Next Due [id number] Novel Flu 12/03/2008 Influenza (IIV3) PF 11/18/2015,12/05/2013 Influenza (prior to 2023) 11/09/2017,,11/03/2011,2010,11/10/2009 Influenza Vaccine >6 months,quad, PF 11/24/2016, 11/18/2015,11/13/2014 Td (Adult), Adsorbed 12/18/2007 Tdap (Adult) Unspecified Formulation 11/03/2011, 12/18/2007 Zoster vaccine, live 11/14/2012 Social History Tobacco Use Types Packs/Day Years [...] Sex Assigned at Female 01/12/2021 8:43 AM BILLBOARD ERECTOR HELPER Legal Sex Female 3:39 AM BILLBOARD ERECTOR HELPER Gender Identity Female 01/12/2021 8:43 AM BILLBOARD ERECTOR HELPER Sexual Orientation Straight 01/12/2021 8: 43 AM BILLBOARD ERECTOR HELPER Last Filed Vital Signs Vital Sign Reading Time Taken Comments Blood Pressure 122/78 02/17/2024 10:09 AM BILLBOARD ERECTOR HELPER Pulse 102 04/15/2023 2:14 PM BILLBOARD ERECTOR HELPER Temperature 36.7 C (98 F) 06/12/2021 4:50 PM CDT Respiratory Rate 16 04/15/2023 2:14 PM BILLBOARD ERECTOR HELPER Oxygen Saturation 96% 04/15/2023 2:14 PM BILLBOARD ERECTOR HELPER Inhaled Oxygen Concentration - - Weight 83.5 kg (184 lb) 02/17/2024 10:09 AM BILLBOARD ERECTOR HELPER Height 162.6 cm (5' 4) 02/17/2024 10:09 AM BILLBOARD ERECTOR HELPER Body Mass Index 31.58 02/17/2024 10:09 AM BILLBOARD ERECTOR HELPER Plan of Treatment Upcoming Encounters Date Type Department Care Team (Late st Contact Info) Description 02/18/2025 9:30 AM BILLBOARD ERECTOR HELPER Office Visit [address] [place] [phone] Valerie Shin MD [address] [facility] [address] [place] [address] 02/18/2025 10:00 AM BILLBOARD ERECTOR HELPER Ancillary Procedure [facility] [address] [place] [address] [address] [place] [phone] Medical Devices Implanted Type Area Latin Teacher Device Identifier Shelf Expiration Date Model / Serial / Lot Stent Ureteral Polaris Ultra [id number] - [id number] Implanted:Qty: 1 on 06/12/2021 by Corbni Andre MD at [facility] Stent Right: Ureter [employer] 01/15/2024 [id number] / / [id number] Imp Insert Tornier Tibial Ankle Size 2x9mm Lt [id number] Implanted:Qty: 1 on 07/17/2012 by Enrique Parisi MD at [facility] Left: Ankle 02/06/2017 [id number] / [id number] / [id number] Imp Insert Tornier Tibial Ankle Base Size [id number] Implanted:Qty: 1 on 07/17/2012 by Enrique Parisi MD at [facility] Left: Ankle 01/06/2017 [id number] / [id number] / [id number] Imp Comp Tornier Talar Ankle Size 2 Lt [id number] Implanted:Qty: 1 on 07/17/2012 by Enrique Parisi MD at [facility] Left: Ankle 03/09/2017 [id number] / [id number] / [id number] Procedures Procedure Name Priority Date/Time Associated Diagnosis Comments DE CERV/VAG CANC SCRN,PELV/BREAST EXAM Routine 02/17/2024 11:53 AM BILLBOARD ERECTOR HELPER Encounter for breast and pelvic examination MA SCREENING BILATERAL W/ SIMON Routine 02/17/2024 11:28 AM BILLBOARD ERECTOR HELPER Visit for screening mammogram DX BONE DENSITY Routine 01/15/2021 2:37 PM BILLBOARD ERECTOR HELPER Asymptomatic postmenopausal state PAP IMAGED THIN LAYER SCREEN Routine 01/14/2020 3:33 PM BILLBOARD ERECTOR HELPER Encounter for gynecological examination without abnormal finding GLUCOSE WHOLE BLOOD Routine 12/25/2018 9 :03 AM BILLBOARD ERECTOR HELPER Screening for diabetes mellitus LIPID PROFILE Routine 12/25/2018 9:03 AM BILLBOARD ERECTOR HELPER Screening for cardiovascular condition COMPREHENSIVE METABOLIC PANEL Routine 12/13/2016 10:34 AM BILLBOARD ERECTOR HELPER Screening for metabolic disorder COLONOSCOPY - HIM SCAN Routine 02/07/2011 from Last 3 Months or Most Recently Relevant to Health Maintenance Results * MA Screen Bilateral w/Simon (02/17/2024 11:28 AM BILLBOARD ERECTOR HELPER) Anatomical Region Laterality Modality Breast Bilateral Mammography Impressions 02/17/2024 2:03 PM BILLBOARD ERECTOR HELPER IMPRESSION: ACR BI-RADS Category 1: Negative BREAST CANCER SCREENING RECOMMENDATION: Routine yearly mammography beginning at age 40 or as discussed with your provider. The results and recommendations of this examination will be communicated to the patient. Dominique Laguerre MD Narrative 02/17/2024 2:03 PM BILLBOARD ERECTOR HELPER BILATERAL FULL FIELD DIGITAL SCREENING MAMMOGRAM WITH TOMOSYNTHESIS Performed on: 02/17/24 Compared to: 02/09/2023, 01/19/2022, 01/15/2021, and 01/14/2020 Technique: This study was evaluated with the assistance of Computer-Aided Detection. Breast Tomosynthesis was used in interpretation. Findings: There are scattered areas of fibroglandular density. There is no radiographic evidence of malignancy. us Valerie PAEZ MAMMOGRAPHY ORDERABLES Final Result * DX Hip/Pelvis/Spine (01/15/2021 2:37 PM BILLBOARD ERECTOR HELPER) Anatomical Region Laterality Modality Dexa Bone Mineral Den sity Narrative 01/15/2021 3:12 PM BILLBOARD ERECTOR HELPER DX Hip/Pelvis/Spine Order #: [id number] Study Notes WilfridrickyFabiola Jorden on 01/15/2021 2:42 PM BONE DENSITOMETRY [facility] [address] [place] [address] 01/15/2021 PATIENT: Naty Soares CHART: [id number] : 1955 AGE: [age] year old SEX: female REFERRING PHYSICIAN: Peng Jean PROCEDURE: Bone density scanning was performed using DXA technology of the lumbar spine and hip. Scanning was performed on a [employer] scanner. Reporting is completed in the form of a T-score. The T-score represents the standard deviation from peak bone mass based on a young healthy adult. REFERENCE T-SCORES: Normal -1.0 and greater Osteopenia Between -1.0 and -2.5 Osteoporosis -2.5 and less RISK FACTORS: Post-menopausal, Fracture of ankle CURRENT TREATMENT: Calcium, Vitamin D FINDINGS: Lumbar Spine (L1-L4) T-score: 1.2 Left Femoral Neck T-score: -0.8 Lumbar (L1-L4) BMD: 1.341 Previous: 1.322 Comparison is made to another DXA performed on the same [employer] machine on 12/13/16. *rt hip replacement Peng PAEZ DEXA ORDERABLES Final Res ult * Pap imaged thin layer screen with HPV - recommended age 30 - 65 (01/14/2020 3:33 PM BILLBOARD ERECTOR HELPER) PAP NIL COPATH Copath Report Patient Name: NATY SOARES MR#: [id number] Specimen #: [id number] Collected: 01/14/2020 Received: 01/16/2020 Reported: 01/18/2020 11:01 Ordering Phy(s): PENG JEAN For improved result formatting, select 'View Enhanced Report Format' under Linked Documents section. SPECIMEN/STAIN PROCESS: Pap imaged thin layer prep screening (Surepath, FocalPoint with guided screening) Pap-Cyto x 1, HPV ordered x 1 SOURCE: Vaginal Pap imaged thin layer prep screening (Surepath, FocalPoint with guided screening) SPECIMEN ADEQUACY: Satisfactory for evaluation. -Transformation zone component absent. CYTOLOGIC INTERPRETATION: Negative for intraepithelial lesion or malignancy Electronically signed out by: RANDALL Chua (ASCP) CLINICAL HISTORY: Partial Hysterectomy, A previous normal pap Date of Last Pap: 12/20/2018, Papanicolaou Test Limitations: Cervical cytology is a screening test with limited sensitivity; regular screening is critical for cancer prevention; Pap tests are primarily effective for the diagnosis/preventi on of squamous cell carcinoma, not adenocarcinomas or other cancers. COLLECTION SITE: Client: [facility] Location: [facility] (S) [facility] with the professional component performed at the [facility], [address] [place] [phone] ([phone]) COPATH Cytologic material (specimen) 01/14/2020 3:33 PM BILLBOARD ERECTOR HELPER 01/16/2020 11:07 AM BILLBOARD ERECTOR HELPER Peng Jean MD LAB - OPTIME CLINICAL SPECIME N Final Result COPATH * Glucose whole blood (12/25/2018 9:03 AM BILLBOARD ERECTOR HELPER) Glucose Whole Blood 86 70 - 99 mg/dL 12/25/2018 9:34 AM BILLBOARD ERECTOR HELPER [facility] Whole blood specimen (specimen) 12/25/2018 9:03 AM BILLBOARD ERECTOR HELPER 12/25/2018 9:04 AM BILLBOARD ERECTOR HELPER Peng Jean MD LAB - BLOOD ORDERABLES Final Result Performing Organization Address City/[facility]/ZIP Co de Phone Number [facility] [address] [place] [phone] * (ABNORMAL) Lipid Profile (12/25/2018 9:03 AM BILLBOARD ERECTOR HELPER) Cholesterol 187 <200 mg/dL 12/25/2018 3:03 PM [facility] Triglycerides 124 <150 mg/dL 12/25/2018 3:17 PM [facility] HDL Cholesterol 60 >49 mg/dL 9 3:32 PM [facility] LDL Cholesterol Calculated 108(H) <100 mg/dL 12/25/2018 3:32 PM [facility] Comment: Above desirable: 100-129 mg/dl Borderline High: 130-159 mg/dL High: 160-189 mg/dL Very high: >189 mg/dl Non HDL Cholesterol 133(H) <130 mg/dL 12/25/2018 3:32 PM [facility] Comment: Above Desirable: 130-159 mg/dl Borderline high: 160-189 mg/dl High: 190-219 mg/dl Very high: >219 mg/dl Blood specimen (specimen) 12/25/2018 9:03 AM BILLBOARD ERECTOR HELPER 12/25/2018 9:04 AM BILLBOARD ERECTOR HELPER Peng Jean MD LAB - BLOOD ORDERABLES Final Result [facility] [address] [place] [address] * Comprehensive metabolic panel (12/13/2016 10:34 AM BILLBOARD ERECTOR HELPER) Sodium 139 133 - 144 mmol/L 12/14/2016 9:10 AM [facility] Potassium 3.6 3.4 - 5.3 mmol/L 12/14/2016 9:10 AM [facility] Chloride 105 94 - 109 mmol/L 12/14/2016 9:10 AM [facility] Carbon Dioxide 26 20 - 32 mmol/L 12/14/2016 9:10 AM [facility] Anion Gap 8 3 - 14 mmol/L 12/14/2016 9:10 AM [facility] Glucose 73 70 - 99 mg/dL 12/14/2016 9:10 AM [facility] Urea Nitrogen 14 7 - 30 mg/dL 12/14/2016 9:10 AM [facility] Creatinine 0.72 0.52 - 1.04 mg/dL 12/14/2016 9:10 AM [facility] GFR Estimate 82 >60 mL/min/1.7 m2 12/14/2016 9:10 AM [facility] Comment:Non GFR Calc GFR Estimate If Black >90 >60 mL/min/1.7 m2 12/14/2016 9:10 AM [facility] Comment: GFR Calc Calcium 9.3 8.5 - 10.1 mg/dL 12/14/2016 9:10 AM [facility] Bilirubin Total 0.4 0.2 - 1.3 mg/dL 12/14/2016 9:10 AM [facility] Albumin 3.7 3.4 - 5.0 g/dL 12/14/2016 9:10 AM [facility] Protein Total 6.8 6.8 - 8.8 g/dL 12/14/2016 9:10 AM [facility] Alkaline Phosphatase 74 40 - 150 U/L 12/14/2016 9:10 AM [facility] ALT 30 0 - 50 U/L 12/14/2016 9:10 AM [facility] AST 16 0 - 45 U/L 12/14/2016 9:10 AM [facility] Blood specimen (specimen) 12/13/2016 10:34 AM BILLBOARD ERECTOR HELPER 12/13/2016 10:35 AM BILLBOARD ERECTOR HELPER Peng Jean MD LAB - BLOOD ORDERABLES Final Result [facility] [address] [place] [address] * Colonoscopy - HIM Scan (02/07/2011) Jennifer Alcazar - 02/07/2011 Patient Reported: Colonoscopy done on this date: 2011 (approximately), by this group: Daksha mcnair, results were normal. 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 Advance Directives and Living Will 07/01/2021 Health Care Directiv e 06/01/2018 Healthcare Agents on File Name Relationship Healthcare Agent Relationship Communication Cyndi Soares Daughter First Alternate Health Care Agent [email or web address] Care Teams Counseling Center Director Relationship Specialty Start Date End Date Cristine Castorena MD [facility] [address] [place] [address] PCP - General 04/24/21 Yamila Joe MD Urology 04/14/21 Valerie Shin MD [address] [facility] [address] [place] [address] Assigned OBGYN Provider 01/23/22 Adrian Martínez MD [address] [place] [address] [address] [place] [address] Colon & Rectal 02/11/23 Magdalena Fonseca EP [facility] [address] [place] [address] Cardiac Rehabilitation Therapist 08/25/23 08/24/24 Adrian Martínez MD [address] [facility] [address] [place] [address] Assigned Surgical Provider 09/30/23
--- OUTSIDE RECORDS SUMMARY | 2024-03-07 13:43 | XMS_ITS | Encounter Summary ---
Author Organization [facility] Address [address] [place] [address]. [place] [address] Care Team Providers Care Sketch Artist Name Role Phone Yamila Joe MD Unavailable Cristine Castorena MD Primary Care Provider [phone] Yamila Joe MD Unavailable Valerie Shin MD Unavailable Adrian Martínez MD Unavailable [phone] Magdalena Fonseca Unavailable Adrian Martínez MD Unavailable Encounter Details Date Type Department Care Team (Late st Contact Info) Description 04/15/2023 MyC Medical Advice [facility] [address] [place] [address] Adrian Martínez MD [address] [facility] [address] [place] [address] Social History Tobacco Use Types [...] Sex Assigned at Female 01/12/2021 8:43 AM BLOOMING MILL SUPERVISOR Legal Sex Female 3:39 AM BLOOMING MILL SUPERVISOR Gender Identity Female 01/12/2021 8:43 AM BLOOMING MILL SUPERVISOR Sexual Orientation Straight 01/12/2021 8: 43 AM BLOOMING MILL SUPERVISOR documented as of this encounter Plan of Treatment Upcoming Encounters Date Type Department Care Team (Late st Contact Info) Description 02/18/2025 9:30 AM BLOOMING MILL SUPERVISOR Office Visit [facility] [address] [place] [address] [phone] Valerie Shin MD [address] [facility] [address] [place] [address] 02/18/2025 10:00 AM BLOOMING MILL SUPERVISOR Ancillary Procedure [facility] [address] [facility] [address] [place] [phone] documented as of this encounter Visit Diagnoses Not on filedocumented in this encounter Additional Health Concerns Assessment Noted Time PHQ-9 Depression Total Score: 1 02/09/19 24 10:29 AM BLOOMING MILL SUPERVISOR documented as of this encounter Care Teams Sketch Artist Relationship Specialty Start Date End Date Cristine Castorena MD [address] [address] PCP - General 04/24/21 Yamila Joe MD Urology 04/14/21 Yamila Joe MD [address] [place] [address] [address] [place] [address] Assigned Surgical Provider 07/18/21 Valerie Shin MD [address] [place] [address] [place] [address] Assigned OBGYN Provider 01/23/22 Adrian Martínez MD [address] [place] [address] [address] [place] [address] Colon & Rectal 02/11/23 Magdalena Fonseca EP [facility] [address] [place] [address] Cardiac Rehabilitation Therapist 08/25/23 08/24/24 Adrian Martínez MD [address] [address] Assigned Surgical Provider 09/30/23 documented as of this encounter
--- OUTSIDE RECORDS SUMMARY | 2024-03-07 13:43 | XMS_ITS | Clinical Summary ---
Author Organization [facility] Address [address] [place] [id number] Care Team Providers Care Energy Efficiency Finance Manager Name Role Phone Yamila Joe MD Unavailable [phone] Cristine Castorena MD Primary Care Provider Valerie Shin MD Unavailable Adrian Martínez MD Unavailable Magdalena Fonseca Unavailable [phone] Adrian Martínez MD Unavailable Allergies Active Allergy Reactions Criticality Noted Date [...] ns:Chronic seasonal allergic rhinitis due to pollen Argos 1 spray into both nostrils once daily. [...] Overview (01/23/2020): Pap smears no longer indicated. 1999- total laparoscopic hysterectomy for endometriosis. '13, '14, '15, '16 NIL vaginal paps 2016, 2018 NIL/NEg HPV of vaginal cuff Plan: Annual pelvic exam. 12/20/18 (age 63) Vaginal pap: NIL/neg HR HPV. Her last Pap smear will be at 64. -Peng Jean MD 01/14/20 NIL vaginal pap, Neg HPV, age 64. Plan no further pap screening per provider visit notes. Arthritis 07/17/2012 Encounters Date Type Department Care Team Description 02/17/2024 11:30 AM HYDRO ELECTRIC STATION OPERATOR Ancillary Procedure [facility] [address] [facility], [address] [place] [phone] Visit for screening mammogram 02/17/2024 10:30 AM HYDRO ELECTRIC STATION OPERATOR Office Visit [facility] [address] [facility] [address] [place] [phone] Valerie Shin MD Atrophic vaginitis (Primary Dx); Encounter for breast and pelvic examination 02/17/2024 Travel 02/12/2024 Travel from Last 3 Months Immunizations Name Administration Dates Next Due H2g4-14 Novel Flu 12/03/2008 Influenza (IIV3) PF 11/18/2015,12/05/2013 Influenza (prior to 2023) 11/09/2017,,11/03/2011,2010,11/10/2009 Influenza Vaccine >6 months,quad, PF 11/24/2016, 11/18/2015,11/13/2014 Td (Adult), Adsorbed 12/18/2007 Tdap (Adult) Unspecified Formulation 11/03/2011, 12/18/2007 Zoster vaccine, live 11/14/2012 Family History Medical History Relation Comments Prostate Cancer Brother Hypertension Father Kidney Cancer Father Breast Cancer Mother Endometrial Cancer Mother Hypertension Mother Lung Cancer Mother Lung Cancer Sister at 72 Relation Status Comments Brother Father Mother Sister Social History Tobacco Use Types Packs/Day Years [...] Sex Assigned at Female 01/12/2021 8:43 AM HYDRO ELECTRIC STATION OPERATOR Legal Sex Female 3:39 AM HYDRO ELECTRIC STATION OPERATOR Gender Identity Female 01/12/2021 8:43 AM HYDRO ELECTRIC STATION OPERATOR Sexual Orientation Straight 01/12/2021 8: 43 AM HYDRO ELECTRIC STATION OPERATOR Last Filed Vital Signs Vital Sign Reading Time Taken Comments Blood Pressure 122/78 02/17/2024 10:09 AM HYDRO ELECTRIC STATION OPERATOR Pulse 102 04/15/2023 2:14 PM HYDRO ELECTRIC STATION OPERATOR Temperature 36.7 C (98 F) 06/12/2021 4:50 PM CDT Respiratory Rate 16 04/15/2023 2:14 PM HYDRO ELECTRIC STATION OPERATOR Oxygen Saturation 96% 04/15/2023 2:14 PM HYDRO ELECTRIC STATION OPERATOR Inhaled Oxygen Concentration - - Weight 83.5 kg (184 lb) 02/17/2024 10:09 AM HYDRO ELECTRIC STATION OPERATOR Height 162.6 cm (5' 4) 02/17/2024 10:09 AM HYDRO ELECTRIC STATION OPERATOR Body Mass Index 31.58 02/17/2024 10:09 AM HYDRO ELECTRIC STATION OPERATOR Plan of Treatment Upcoming Encounters Date Type Department Care Team (Late st Contact Info) Description 02/18/2025 9:30 AM HYDRO ELECTRIC STATION OPERATOR Office Visit [facility] [address] [facility] [address] [place] [phone] Valerie Shin MD [address] [facility] [address] [place] [address] 02/18/2025 10:00 AM HYDRO ELECTRIC STATION OPERATOR Ancillary Procedure [facility] [address] [facility], [facility] [address] [place] [phone] Health Maintenance Due Date Last Done Comments ANNUAL REVIEW OF HM ORDERS 1955 CT COLONOGRAPHY 1955 DEPRESSION ACTION PLAN 1955 FIT 1955 FLEX SIG 1955 sDNA (Cologuard) 1955 RSV VACCINE (1 - Risk 60-74 years 1-dose series) 2014 BMP 12/13/2017 12/13/2016 GLUCOSE 12/25/2021 12/25/2018, 07/2016, 07/18/2012 FALL RISK ASSESSMENT 01/15/2022 01/15/2021, 01/14/20 20 PHQ-9 08/10/2023 02/09/2023, 01/07, 01/15/2021, Additional history exists LIPID 12/26/2023 12/25/2018, 12/13/2016 MEDICARE ANNUAL WELLNESS VISIT 08/09/2024 08/10/2023, 06/23/2022, 04/08/2021, Additional history exists MAMMO SCREENING 02/16/2025 02/17/2024, 04/2023, 01/19/2022, Additional history exists ADVANCE CARE PLANNING 07/01/2026 07/01/2021 , 01/15/2021, 01/14/2020 COLONOSCOPY 06/10/2031 06/09/2021, 06/08, 02/07/2011 COLORECTAL CANCER SCREENING 06/10/2031 DTAP/TDAP/TD IMMUNIZATION (4 - Td or Tdap) 10/20/2031 10/19/2021, 11/03/2011, 11/03/2011, Additional history exists DEXA 01/16/2036 01/15/2021, 07/2016, 12/05/2014, Additional history exists PAP Discontinued 01/14/2020, 12/08, 12/14/2017, Additional history exists HEPATITIS C SCREENING Completed 04/08/2021 ZOSTER IMMUNIZATION Completed 09/18/2021, 07/17/2021, 11/14/2012 Pneumococcal Vaccine: 50+ Years Completed 06/23/2022, 04/08/2021 COVID-19 Vaccine Completed 11/23/2023, 06/2022, 10/26/2021, Additional history exists INFLUENZA VACCINE Completed 12/12/2023, , 11/26/2021, Additional history exists HPV IMMUNIZATION Aged Out No longer e ligible based on patient's age to complete this topic MENINGITIS IMMUNIZATION Aged Out No l onger eligible based on patient's age to complete this topic RSV MONOCLONAL ANTIBODY Aged Out No l onger eligible based on patient's age to complete this topic Medical Devices Implanted Type Area Newspaper Manager Device Identifier Shelf Expiration Date Model / Serial / Lot Stent Ureteral Polaris Ultra [id number] - [id number] Implanted:Qty: 1 on 06/12/2021 by Corbin Andre MD at [facility] Stent Right: Ureter [employer] 01/15/2024 [id number] / / [id number] Imp Insert Tornier Tibial Ankle Size 2x9mm Lt [id number] Implanted:Qty: 1 on 07/17/2012 by Enrique Parisi MD at [facility] Left: Ankle 02/06/2017 [id number] / [id number] / [id number] Imp Insert Tornier Tibial Ankle Base Size 2 [id number] Implanted:Qty: 1 on 07/17/2012 by Enrique Parisi MD at [facility] Left: Ankle 01/06/2017 [id number] / [id number] / [id number] Imp Comp Tornier Talar Ankle Size 2 Lt [id number] Implanted:Qty: 1 on 07/17/2012 by Enrique Parisi MD at [facility] Left: Ankle 03/09/2017 [id number] / [id number] / [id number] Procedures Procedure Name Priority Date/Time Associated Diagnosis Comments PA CERV/VAG CANC SCRN,PELV/BREAST EXAM Routine 02/17/2024 11:53 AM HYDRO ELECTRIC STATION OPERATOR Encounter for breast and pelvic examination MA SCREENING BILATERAL W/ SIMON Routine 02/17/2024 11:28 AM HYDRO ELECTRIC STATION OPERATOR Visit for screening mammogram DX BONE DENSITY Routine 01/15/2021 2:37 PM HYDRO ELECTRIC STATION OPERATOR Asymptomatic postmenopausal state PAP IMAGED THIN LAYER SCREEN Routine 01/14/2020 3:33 PM HYDRO ELECTRIC STATION OPERATOR Encounter for gynecological examination without abnormal finding GLUCOSE WHOLE BLOOD Routine 12/25/2018 9 :03 AM HYDRO ELECTRIC STATION OPERATOR Screening for diabetes mellitus LIPID PROFILE Routine 12/25/2018 9:03 AM HYDRO ELECTRIC STATION OPERATOR Screening for cardiovascular condition COMPREHENSIVE METABOLIC PANEL Routine 12/13/2016 10:34 AM HYDRO ELECTRIC STATION OPERATOR Screening for metabolic disorder COLONOSCOPY - HIM SCAN Routine 02/07/2011 from Last 3 Months or Most Recently Relevant to Health Maintenance Results * MA Screen Bilateral w/Simon (02/17/2024 11:28 AM HYDRO ELECTRIC STATION OPERATOR) Anatomical Region Laterality Modality Breast Bilateral Mammography Impressions 02/17/2024 2:03 PM HYDRO ELECTRIC STATION OPERATOR IMPRESSION: ACR BI-RADS Category 1: Negative BREAST CANCER SCREENING RECOMMENDATION: Routine yearly mammography beginning at age 40 or as discussed with your provider. The results and recommendations of this examination will be communicated to the patient. Dominique Laguerre MD Narrative 02/17/2024 2:03 PM HYDRO ELECTRIC STATION OPERATOR BILATERAL FULL FIELD DIGITAL SCREENING MAMMOGRAM WITH TOMOSYNTHESIS Performed on: 02/17/24 Compared to: 02/09/2023, 01/19/2022, 01/15/2021, and 01/14/2020 Technique: This study was evaluated with the assistance of Computer-Aided Detection. Breast Tomosynthesis was used in interpretation. Findings: There are scattered areas of fibroglandular density. There is no radiographic evidence of malignancy. us Valerie Shin MD IMG MAMMOGRAPHY ORDERABLES Final Result * DX Hip/Pelvis/Spine (01/15/2021 2:37 PM HYDRO ELECTRIC STATION OPERATOR) Anatomical Region Laterality Modality Dexa Bone Mineral Den sity Narrative 01/15/2021 3:12 PM HYDRO ELECTRIC STATION OPERATOR DX Hip/Pelvis/Spine Order #: [id number] Study Notes Renettacarolynricky Fabiola A on 01/15/2021 2:42 [place] [address] 01/15/2021 PATIENT: Naty Soares CHART: [id number] : 1955 AGE: [age] year old SEX: female REFERRING PHYSICIAN: Peng Jean PROCEDURE: Bone density scanning was performed using DXA technology of the lumbar spine and hip. Scanning was performed on a hdl therapeutics scanner. Reporting is completed in the form [...] to another DXA performed on the same hdl therapeutics machine on 12/13/16. *rt hip replacement us Peng Jean MD IMG DEXA ORDERABLES Final Res ult * Pap imaged thin layer screen with HPV - recommended age 30 - 65 (01/14/2020 3:33 PM HYDRO ELECTRIC STATION OPERATOR) PAP NIL COPATH Copath Report Patient Name: NATY SOARES MR#: [id number] Specimen #: [id number] Collected: 01/14/2020 Received: 01/16/2020 Reported: 01/18/2020 11:01 [...] adenocarcinomas or other cancers. COLLECTION SITE: Client: [facility] Location: [facility] (S) The technical component of this testing was completed at the [facility], with the professional component performed at [facility] [address] [place] [phone] ([phone]) COPATH Cytologic material (specimen) 01/14/2020 3:33 PM HYDRO ELECTRIC STATION OPERATOR 01/16/2020 11:07 AM HYDRO ELECTRIC STATION OPERATOR Peng Jean MD LAB - OPTIME CLINICAL SPECIME N Final Result COPATH * Glucose whole blood (12/25/2018 9:03 AM HYDRO ELECTRIC STATION OPERATOR) Glucose Whole Blood 86 70 - 99 mg/dL 12/25/2018 9:34 AM HYDRO ELECTRIC STATION OPERATOR [facility] Whole blood specimen (specimen) 12/25/2018 9:03 AM HYDRO ELECTRIC STATION OPERATOR 12/25/2018 9:04 AM HYDRO ELECTRIC STATION OPERATOR Peng Jean MD LAB - BLOOD ORDERABLES Final Result Performing Organization Address City/[facility] Co de Phone Number [facility] [address] [address] * (ABNORMAL) Lipid Profile (12/25/2018 9:03 AM HYDRO ELECTRIC STATION OPERATOR) Cholesterol 187 <200 mg/dL 12/25/2018 3:03 PM [facility] Triglycerides 124 <150 mg/dL 12/25/2018 3:17 PM [facility] HDL Cholesterol 60 >49 mg/dL 9 3:32 PM [facility] LDL Cholesterol Calculated 108(H) <100 mg/dL 12/25/2018 3:32 PM [facility] Comment: Above desirable: 100-129 mg/dl Borderline High: 130-159 mg/dL High: 160-189 mg/dL Very high: >189 mg/dl Non HDL Cholesterol 133(H) <130 mg/dL 12/25/2018 3:32 PM HYDRO ELECTRIC STATION OPERATOR [facility] Comment: Above Desirable: 130-159 mg/dl Borderline high: 160-189 mg/dl High: 190-219 mg/dl Very high: >219 mg/dl Blood specimen (specimen) 12/25/2018 9:03 AM HYDRO ELECTRIC STATION OPERATOR 12/25/2018 9:04 AM HYDRO ELECTRIC STATION OPERATOR Peng Jean MD LAB - BLOOD ORDERABLES Final Result [facility] [address] [place] [address] * Comprehensive metabolic panel (12/13/2016 10:34 AM [facility]) Sodium 139 133 - 144 mmol/L 12/14/2016 9:10 AM [facility] Potassium 3.6 3.4 - 5.3 mmol/L 12/14/2016 9:10 AM [facility] Chloride 105 94 - 109 mmol/L 12/14/2016 9:10 AM [facility] Carbon Dioxide 26 20 - 32 mmol/L 12/14/2016 9:10 AM [facility] Anion Gap 8 3 - 14 mmol/L 12/14/2016 9:10 AM [facility] Glucose 73 70 - 99 mg/dL 12/14/2016 9:10 AM [facility] Urea Nitrogen 14 7 - 30 mg/dL 12/14/2016 9:10 AM [facility] Creatinine 0.72 0.52 - 1.04 mg/dL 12/14/2016 9:10 AM [facility] GFR Estimate 82 >60 mL/min/1.7 m2 12/14/2016 9:10 AM [facility] Comment:Non GFR Calc GFR Estimate If Black >90 >60 mL/min/1.7 m2 12/14/2016 9:10 AM [facility] Comment: GFR Calc Calcium 9.3 8.5 - 10.1 mg/dL 12/14/2016 9:10 AM [facility] Bilirubin Total 0.4 0.2 - 1.3 mg/dL 12/14/2016 9:10 AM [facility] Albumin 3.7 3.4 - 5.0 g/dL 12/14/2016 9:10 AM [facility] Protein Total 6.8 6.8 - 8.8 g/dL 12/14/2016 9:10 AM HYDRO ELECTRIC STATION OPERATOR [facility] Alkaline Phosphatase 74 40 - 150 U/L 12/14/2016 9:10 AM HYDRO ELECTRIC STATION OPERATOR [facility] ALT 30 0 - 50 U/L 12/14/2016 9:10 AM HYDRO ELECTRIC STATION OPERATOR [facility] AST 16 0 - 45 U/L 12/14/2016 9:10 AM HYDRO ELECTRIC STATION OPERATOR [facility] Blood specimen (specimen) 12/13/2016 10:34 AM HYDRO ELECTRIC STATION OPERATOR 12/13/2016 10:35 AM HYDRO ELECTRIC STATION OPERATOR us Peng Jean MD LAB - BLOOD ORDERABLES Final Result [facility] [address] [place] [address] * Colonoscopy - HIM Scan (02/07/2011) Narrative Jennifer Munroe - 02/07/2011 Patient Reported: Colonoscopy done on this date: 2011 (approximately), by this group: Daksha mcnair, results were normal. 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 [employer] Expl anation Advance Directives and Living Will 07/01/2021 Health Care Directiv e 06/01/2018 Healthcare Agents on File Name Relationship Healthcare Agent Relationship Communication Cyndi Soares Daughter First Alternate Health Care Agent [email or web address] Care Teams Energy Efficiency Finance Manager Relationship Specialty Start Date End Date Cristine Castorena MD [facility] [address] [place] [address] PCP - General 04/24/21 Yamila Joe MD Urology 04/14/21 Valerie Shin MD [address] [place] [address] [place] [address] Assigned OBGYN Provider 01/23/22 Adrian Martínez MD [address] [place] [id number] Colon & Rectal 02/11/23 Magdalena Fonseca EP [facility] [address] [place] [address] Cardiac Rehabilitation Therapist 08/25/23 08/24/24 Adrian Martínez MD [address] [place] [id number] Assigned Surgical Provider 09/30/23
--- OUTSIDE RECORDS SUMMARY | 2024-03-07 13:43 | XMS_ITS | Clinical Summary ---
Author Organization [facility] Address [place], [place] [address] Care Team Providers Care Museum Attendant Name Role Phone Cristine Castorena MD Primary Care Provider Allergies Active Allergy Reactions Criticality Noted Date Comments Adhesive Tape-Silicones Erythema 01/25/2024 BANDAIDS specifically Rosuvastatin Muscle Weakness,Myalgia 2023 House Dust 08/08/2008 Mold Extracts 08/08/2008 Pollen Extracts 08/08/2008 Medications cetirizine (ZYRTEC) 10 mg tablet Take 10 mg by mouth once daily if needed for Allergy Symptoms. 0 6 Active calcium carbonate (CALCIUM 600 ORAL) Take 600 mg by mouth once daily. Active melatonin 3 mg tablet Take 6 mg by mouth at bedtime. Active aspirin (ECOTRIN) 81 mg enteric coated tabletIndications :NSTEMI (non-ST elevated myocardial infarction) (HC) Take 1 Tablet (81 mg) by mouth once daily with a meal. 4 Active nitroglycerin (NITROSTAT) 0.4 mg sublingual tabletIndications :NSTEMI (non-ST elevated myocardial infarction) (HC) Place 1 Tablet (0.4 mg) under the tongue every 5 minutes if needed for Chest pain 1st choice (Hold if SBP less than 90 mmHg). Up to 3 tablets in 15 minutes. 25 Tablet 4 Active triamcinolone 0.1 % ointment apply to affected area(s) by topical route twice daily for 2 weeks* 4 Active escitalopram oxalate (LEXAPRO) 20 mg tabletIndications :Dysthymia Take 1 Tablet (20 mg) by mouth at bedtime. 90 Tablet 3 4 Active gabapentin (NEURONTIN) 100 mg capsuleIndication s:Restless legs syndrome Take 2-3 Capsules (200-300 mg) by mouth at bedtime. Restless Leg Syndrome 180 Capsule 3 4 Active fluticasone (50 mcg per actuation) nasal solution (FLONASE)Indicati ons:Allergic rhinitis due to pollen, unspecified seasonality Inhale 2 Sprays to both nostrils 2 times daily if needed for Rhinitis. 16 g 11 4 Active polyethylene glycol-electrolyt e (GOLYTELY) 236-22.74-6.74 -5.86 gram suspensionIndicat ions:Encounter for screening colonoscopy Drink 2 liters the day before the procedure and 2 liters 6 hours prior to procedure. 4000 mL 4 Active amLODIPine (NORVASC) 2.5 mg tabletIndications :NSTEMI (non-ST elevated myocardial infarction) (HC) TAKE ONE TABLET BY MOUTH ONE TIME DAILY 90 Tablet 3 4 Active CPAPIndications:O SA (obstructive sleep apnea) RESMED CPAP (E0601) machine for home use at pressure: 5-15cmw, Choice of mask (A7030 or A7034) w/full face cushion (A7031) x1/mo, nasal cushion (A7032) x2/mo, or nasal pillows (A7033) x 2/mo; Length of Need: 99 months; Frequency of use: Daily 1 Each 11 4 Active metoprolol succinate (Toprol XL) 25 mg Sustained-Release tabletIndications :NSTEMI (non-ST elevated myocardial infarction) (HC) Take 1 Tablet (25 mg) by mouth once daily. 90 Tablet 3 4 Active clindamycin (CLEOCIN-T) 1 % lotion apply to the face by topical route once daily.* 4 Active estradioL (ESTRACE) 0.01% (0.1 mg/g) vaginal cream Insert 1 g into the vagina. 4 Active oxyCODONE (ROXICODONE) 5 mg immediate release tabletIndications :Calculus of gallbladder without cholecystitis without obstruction Take 1 Tablet (5 mg) by mouth every 4 hours if needed for Pain. 10 Tablet 01/26/2024 12:23 PM CHIEF NUCLEAR MEDICINE TECHNOLOGIST 4 Active amoxicillin-clavu lanate (Augmentin) 875-125 mg tabletIndications :Acute non-recurrent ethmoidal sinusitis Take 1 Tablet by mouth two times daily with meals for 7 days. 14 Tablet 4 02/06/20 24 Active Problems Problem Noted Date Diagnosed Date HTN (hypertension) 08/10/2023 Dysthymia 08/10/2023 Elevated ferritin 08/10/2023 Calculus of gallbladder with out cholecystitis without obstruction 07/13/2023 MINOCA (MD with non-obstructive coronary disease ) 07/04/2023 Overview (07/07/2023): Dx 07/07/2023 via cMRI Obstructive sleep apnea 07/04/2023 Mixed hyperlipidemia 07/04/2023 Mild single current episode of major depressive disorder 04/08/2021 Restless legs syndrome (RLS) 11/02/2018 KAY 06/28/2012 AHI-6.3 REM-14 08/18/2017 History of hysterectomy including cervix 017 04/14/2022 Overview (04/14/2022): Pap smears no longer indicated. 2000- total laparoscopic hysterectomy for endometriosis. '13, '14, '15, '16 NIL vaginal paps 2016, 2018 NIL/NEg HPV of vaginal cuff Plan: Annual pelvic exam. 12/20/18 (age 63) Vaginal pap: NIL/neg HR HPV. Her last Pap smear will be at 64. -Peng Hubbard MD 01/14/20 NIL vaginal pap, Neg HPV, age 64. Plan no further pap screening per provider visit notes. Hip osteoarthritis 05/10/2013 Knee osteoarthritis 05/10/2013 Arthritis 07/17/2012 04/14/2022 Personal history of colonic polyps 03/24/2012 Overview (06/09/2021): Colonoscopy 03/2012 small erosion in ileum repeat in 5 years Colonoscopy 06/2016 normal repeat in 5 years Colonoscopy 06/2021 normal , repeat in 5 years Adductor tendinosis 06/10/2011 Lumbar facet arthropathy 09/21/2010 Spinal stenosis, lumbar region. 09/21/2010 Allergic rhinitis, cause unspecified 05/04/2006 Thyrotoxicosis without menti on of goiter or other cause, without mention of thyrotoxic crisis or storm Resolved Problems Problem Noted Date Diagnosed Date Resolved Date Post-MD pericarditis 07/04/2023 024 Abdominal pain, epigastric 04/29/2010 0 05/10/2013 Overview (04/29/2010): EGD 04/2010 normal Ingrowing nail 06/20/2008 05/10/2013 MMT (medial meniscus tear) 05/13/2008 0 05/10/2013 Plantar fascial fibromatosis 10/05/2007 05/10/2012 Encounters Date Type Department Care Team Description 03/06/2024 Orders Only [facility] Scanner 1 scan: (1-Ord) [facility] CT ANGIO CHEST PE PROTOCOL, 03/06/2024 03/06/2024 Orders Only [facility] Scanner 1 scan: (1-Ord) [facility], CHEST 2VIEWS, 03/06/2024 03/06/2024 Nurse Triage [facility] [address] [place] [address] Cristine Castorena MD Chest Pain 03/04/2024 Travel 02/24/2024 Travel 02/16/2024 8:15 AM CHIEF NUCLEAR MEDICINE TECHNOLOGIST Ancillary Procedure [facility] [address] [facility] [address] 02/16/2024 Travel 02/11/2024 Travel 02/07/2024 3:00 PM CHIEF NUCLEAR MEDICINE TECHNOLOGIST Ancillary Procedure [facility] [address] [facility] [address] 02/07/2024 2:30 PM CHIEF NUCLEAR MEDICINE TECHNOLOGIST Office Visit [facility] [address] [facility] [address] Razia Kelley DO Musculoskeletal Problem (Sternum ) 02/06/2024 Travel 02/02/2024 Telephone [facility] [address] [place] [address] aJcob Sainz MD 01/30/2024 4:35 PM CHIEF NUCLEAR MEDICINE TECHNOLOGIST Office Visit [facility] [address] [place] [address] Tammi Kimbrough PA Sinus Problem 01/30/2024 10:40 AM CHIEF NUCLEAR MEDICINE TECHNOLOGIST Nurse/Clinic Staff Only [facility] [address] [place] [address] Surgical Followup (s/p LAPAROSCOPIC CHOLECYSTECTOMY on 01/26/[address] Sainz) 01/30/2024 Travel 01/29/2024 Travel 01/26/2024 9:43 AM CHIEF NUCLEAR MEDICINE TECHNOLOGIST Anesthesia Event [facility] [address] [place] [address] Mick Duval MD Anderson, Justin Andreas [facility] 01/26/2024 9:35 AM CHIEF NUCLEAR MEDICINE TECHNOLOGIST - 01/26/2024 11:26 AM CHIEF NUCLEAR MEDICINE TECHNOLOGIST Surgery [facility] [address], [place] [address] Jacob Sainz MD LAPAROSCOPIC CHOLECYSTECTOMY 01/26/2024 7:13 AM CHIEF NUCLEAR MEDICINE TECHNOLOGIST - 01/26/2024 3:46 PM CHIEF NUCLEAR MEDICINE TECHNOLOGIST Hospital Encounter [facility] [address], [place] [address] Jacob Sainz MD Calculus of gallbladder without cholecystitis without obstruction (Primary Dx) Discharge Disposition: Home Self Care 01/25/2024 Travel 01/17/2024 Telephone [facility] [address] [place] [address] Razia Kelley DO Follow Up 01/16/2024 8:05 AM CHIEF NUCLEAR MEDICINE TECHNOLOGIST Office Visit [facility] [address] [place] [address] Razia Kelley DO Preoperative Exam (LAPAROSCOPIC CHOLECYSTECTOMY - 01/26/2024 - Dr. Jacob Sainz - [facility] ) 01/16/2024 Travel 01/14/2024 Travel 01/12/2024 10:00 AM CHIEF NUCLEAR MEDICINE TECHNOLOGIST Orders Only [place] [id number] [facility] [address] [place] [address] Lab 01/12/2024 Travel 01/10/2024 Travel 12/21/2023 9:30 AM CHIEF NUCLEAR MEDICINE TECHNOLOGIST Office Visit [facility] [address] [place] [address] Jacob Sainz MD Follow Up (Discuss Gallbladder surgery) 12/20/2023 Travel 2023 1:00 PM CHIEF NUCLEAR MEDICINE TECHNOLOGIST Office Visit [facility] [address] [facility] [address] [place] [address] Salvador Tineo MD Follow Up (4 month f/u from heart attack 06/2023 - CTA 08/22 - cards in epic/PT states feeling ok./occ she gets sob when going up flight of stairs /need clearance for surgeries ) 2023 Orders Only [facility] [address] [facility] [address] [place] [address] Cortney Michelle RN <No scans attached> 2023 Travel 12/13/2023 Travel from Last 3 Months Immunizations Name Administration Dates Next Due COVID-19 vaccine ([employer]-Knowmia NTVignani 30mcg/0.3mL) PFHENRIK 06/30/2021,11/14/2020,04/29/2020,2020 Influenza A (H1N1), Inactiva roxanna (Age >=3 Years) 12/03/2008 Influenza RIV4 (Age 18+ Year s) PRESERV FREE 11/08/2018 Influenza, High-dose Inactivated 12/12/2023 Influenza, High-dose Quadriv alent Inactivated 12/06/2022,11/26/2021 Influenza, IIV3 (Age 6-35 mos) 8,11/21/2012,11/03/2011,2010,11/10/2009 Influenza, IIV3 (Age >=3 years) 12/05/2013 Influenza, IIV4 10/30/2019, 7,11/18/2015,2014 Influenza, IIV4 (=>6mos) MDV 11/05/2020 Pneumococcal Conj 20-valent (Prevnar 20) 06/23/2022 Pneumococcal Poly,23-Valent (Pneumovax) 04/08/2021 Tdap 10/19/2021,11/03/2011,12/18/2007 Zoster (Shingrix-RZV, recombinant) 09/18/2021, Zoster (Zostavax-ZVL, live) 11/14/2012 Family History Medical History Relation Name Comments Hyperlipidemia Brother or sister Hypertension Brother Cancer-pancreatic Father Cancer-prostate Father Kidney cancer Father Diabetes Maternal Grandmother Stroke Maternal Grandmother at age 57 Endometrial cancer Mother Lung cancer Mother Postmenopausal breast cancer Mother Hypertension Sister Relation Name Status Comments Brother Father Maternal Grandmother Mother Sister Social History Tobacco Use Types Packs/Day Years Used Date Smoking Tobacco: Never Passive Smoke Exposure: Never Smokeless Tobacco: Never Tobacco Cessation:Counseling Given: Yes Alcohol Use Standard Drinks/Week Comments Not Currently 1.7 (1 standard drink = 0.6 oz p ure alcohol) occasional wine PHQ-2 Answer Date Recorded PHQ-2 TOTAL SCORE 0 08/12/2023 Social Connections Answer Date Recorded Do you often feel lonely or isolated from those around you? 0 07/04/2023 Financial Resource Strain Answer Date R ecorded Difficulty of Paying Living Expenses 3 11/10/2022 Difficulty of Paying Living Expenses Not on file 11/10/2022 Food Insecurity Answer Date Recorded Do you worry your food will run out before you are able to buy more? 1 07/04/2023 Transportation Needs Answer Date Record ed Does lack of transportation keep you from medica l appointments? 1 07/04/2023 Does lack of transportation keep you from work, meetings or getting things that you need? 1 07/04/2023 Housing Stability Answer Date Recorded What is your housing situation today? 1 07/04/2023 Interpersonal Safety Answer Date Record ed Are you being hit, kicked, p ushed or yelled at (see row info)? No 07/04/2023 Interpersonal Safety Abuse 12 - 18 Not on file 07/04/2023 Interpersonal Safety Ambulatory Vulnerability No t on file 07/04/2023 Utilities Answer Date Recorded Do you have trouble paying f or utilities (for example, heat, electricity, water, phone)? 1 07/04/2023 Comments No Sex and Gender Information Value Date Recorded Sex Assigned at Not on file Legal Sex Female 5:49 AM CHIEF NUCLEAR MEDICINE TECHNOLOGIST Gender Identity Not on file Sexual Orientation Not on file Obstetrics History Para Term AB IAB SAB Ectopic Multiple Livin g Live Births 3 3 Date Outcome GA Total Labor Labor/2nd/3rd Weight Sex Type Anes PTL Pema A1 A5 Name Clin Para Para Para Last Filed Vital Signs Vital Sign Reading Time Taken Comments Blood Pressure 106/69 02/07/2024 2:34 PM CHIEF NUCLEAR MEDICINE TECHNOLOGIST Pulse 70 02/07/2024 2:34 PM CHIEF NUCLEAR MEDICINE TECHNOLOGIST Temperature 36.7 C (98.1 F) 01/30/2024 10:39 AM CHIEF NUCLEAR MEDICINE TECHNOLOGIST Respiratory Rate 16 01/26/2024 3:30 PM CHIEF NUCLEAR MEDICINE TECHNOLOGIST Oxygen Saturation 98% 02/07/2024 2:34 PM CHIEF NUCLEAR MEDICINE TECHNOLOGIST Inhaled Oxygen Concentration - - Weight 83.1 kg (183 lb 1.6 oz) 02/07/2024 2:34 P M CHIEF NUCLEAR MEDICINE TECHNOLOGIST Height 160 cm (5' 3) 01/26/2024 8:55 AM CHIEF NUCLEAR MEDICINE TECHNOLOGIST Body Mass Index 32.43 01/26/2024 8:55 AM CHIEF NUCLEAR MEDICINE TECHNOLOGIST Plan of Treatment Upcoming Encounters Date Type Department Care Team (Late st Contact Info) Description 03/09/2024 1:15 PM CHIEF NUCLEAR MEDICINE TECHNOLOGIST Office Visit [facility] [address] [place] [address] Razia Kelley DO [address] [place] [address] 03/20/2024 7:10 AM CHIEF NUCLEAR MEDICINE TECHNOLOGIST Hospital Encounter [facility] [address] [place] [address] Yung Hawk MD [address] [place] [address] 03/20/2024 8:10 AM CHIEF NUCLEAR MEDICINE TECHNOLOGIST - 03/20/2024 8:55 AM CHIEF NUCLEAR MEDICINE TECHNOLOGIST Surgery [facility] [address] [place] [address] Yung Hawk MD [address] [place] [id number] COLONOSCOPY Scheduled Procedures Name Priority Associated Diagnoses Date/Ti me COLONOSCOPY Tier 3 screening 03/20/2024 8:10 AM CHIEF NUCLEAR MEDICINE TECHNOLOGIST Health Maintenance Due Date Last Done Comments RSV vaccine for adults or (1 - Risk 60-74 years 1-dose series) 2014 Mammogram for age 45-75 02/10/2024 02/09/19, 01/19/2022 (Verified in Care Everywhere or Patient Record), 01/15/2021 (Verified in Care Everywhere or Patient Record) Medicare Wellness for age 65+ 08/10/2024 08/10/2023, 06/23/2022, 04/08/2021 Depression screening for age 12+ 08/11/2024 08/12/2023, 08/10/2023, 06/23/2022, Additional history exists BMI (ht and wt on same day) for age 18+ 12/20/2024 12/21/2023, 2023, 08/22/2023, Additional history exists Colonoscopy through age 75 06/10/202606/10, 06/09/2021, 07/02/2016, Additional history exists Lipids for age 45-75 01/11/2029 01/12/2024, 08/22/2023, 07/05/2023, Additional history exists Tetanus booster 10/20/2031 10/19/2021, 10/09, 12/18/2007 DEXA/DXA scan for age 65+ Addressed 2020 (Verified in Care Everywhere or Patient Record) Overridden with the intention of not completing the topic Hepatitis C screening for age 18-79 Completed 04/08/2021 Zoster (shingles) series for age 50+ Completed 09/18/2021, 07/17/2021, 11/14/2012 Tdap Completed 10/19/2021, 10/09, 12/18/2007 Pneumococcal series for age 50+ Completed 06/23/2022, 04/08/2021 COVID-19 vaccine series Completed 11/23/19 24, 11/11/2022, 10/26/2021, Additional history exists Influenza for age 65+ Completed 12/12/2023 , 12/06/2022, 11/26/2021, Additional history exists Procedures Procedure Name Priority Date/Time Associated Diagnosis Comments SCAN-CT INTERPRETATION 12:00 AM CHIEF NUCLEAR MEDICINE TECHNOLOGIST SCAN-RADIOLOGY REPORT 03/06/2024 12:00 AM CHIEF NUCLEAR MEDICINE TECHNOLOGIST US ABDOMEN LIMITED RUQ Routine 5 8:41 AM CHIEF NUCLEAR MEDICINE TECHNOLOGIST RUQ pain Costochondritis XR FOOT 3 VIEWS RIGHT Routine 02/07/2024 3:18 PM CHIEF NUCLEAR MEDICINE TECHNOLOGIST Foot pain, right HEPATIC FUNCTION PANEL Routine 4 3:09 PM CHIEF NUCLEAR MEDICINE TECHNOLOGIST RUQ pain URIC ACID Routine 02/07/2024 3:09 PM CHIEF NUCLEAR MEDICINE TECHNOLOGIST Foot pain, right FERRITIN Routine 02/07/2024 3:09 PM CHIEF NUCLEAR MEDICINE TECHNOLOGIST Elevated ferritin LIPOPROTEIN A Routine 02/07/2024 3:09 PM CHIEF NUCLEAR MEDICINE TECHNOLOGIST Mixed hyperlipidemia COVID/FLU/RSV PANEL Routine 01/30/2024 1 0:41 AM CHIEF NUCLEAR MEDICINE TECHNOLOGIST Sinus congestion PATH TISSUE EXAM Today 01/26/2024 10:3 4 AM CHIEF NUCLEAR MEDICINE TECHNOLOGIST ENDOTRACHEAL TUBE Routine 01/26/2024 10: 07 AM CHIEF NUCLEAR MEDICINE TECHNOLOGIST ENDOTRACHEAL TUBE Routine 01/26/2024 10: 07 AM CHIEF NUCLEAR MEDICINE TECHNOLOGIST LAPAROSCOPIC CHOLECYSTECTOMY 01/26/2024 9:27 AM CHIEF NUCLEAR MEDICINE TECHNOLOGIST Symptomatic cholelithiasis SCAN-CARDIAC STRIP 01/26/2024 12 :00 AM CHIEF NUCLEAR MEDICINE TECHNOLOGIST LIPID PANEL Routine 01/12/2024 9:50 AM CHIEF NUCLEAR MEDICINE TECHNOLOGIST Mixed hyperlipidemia LIPOPROTEIN A Routine 01/12/2024 9:50 AM CHIEF NUCLEAR MEDICINE TECHNOLOGIST Mixed hyperlipidemia SCAN-MAMMOGRAPHY REPORT 02/09/2023 12:00 AM CHIEF NUCLEAR MEDICINE TECHNOLOGIST COLONOSCOPY 06/09/2021 9:33 AM CDT History of colon polyps ANTI HCV Routine 04/08/2021 8:53 AM CHIEF NUCLEAR MEDICINE TECHNOLOGIST Need for hepatitis C screening test from Last 3 Months or Most Recently Relevant to Health Maintenance Results * SCAN-RADIOLOGY REPORT (03/06/2024 12:00 AM CHIEF NUCLEAR MEDICINE TECHNOLOGIST) Anatomical Region Laterality Modality Other us Scanner OTHER Final Result * SCAN-CT INTERPRETATION (03/06/2024 12:00 AM CHIEF NUCLEAR MEDICINE TECHNOLOGIST) Anatomical Region Laterality Modality Other us Scanner OTHER Final Result * US ABDOMEN LIMITED RUQ (02/16/2024 8:41 AM CHIEF NUCLEAR MEDICINE TECHNOLOGIST) Anatomical Region Laterality Modality Abdomen, LIVER Ultrasound 02/16/2024 3:38 PM CHIEF NUCLEAR MEDICINE TECHNOLOGIST Impressions 02/16/2024 3:38 PM CHIEF NUCLEAR MEDICINE TECHNOLOGIST Status post cholecystectomy. No biliary obstruction. Incidental simple intrahepatic cyst. Right renal cortical thinning without hydronephrosis. Dictated by Clay Ovalle MD @ 02/16/2024 3:38:32 PM (Electronically Signed) Narrative 02/16/2024 3:38 PM CHIEF NUCLEAR MEDICINE TECHNOLOGIST For Patients: As a result of the Century Cures Act, medical imaging exams and procedure reports are released immediately into your electronic medical record. You may view this report before your referring provider. If you have questions, please contact your health care provider. INDICATION: Right upper quadrant pain COMPARISON: 11/29/2023 TECHNIQUE: Real time laird scale imaging and color Doppler analysis was performed of the right upper quadrant. FINDINGS: Simple cyst left hepatic lobe measures 12 x 10 x 13 millimeters. No suspicious intrahepatic mass. There is a normal appearance of the hepatic IVC and proximal abdominal aorta. There is no evidence of ascites. The gallbladder is absent. The visualized common bile duct measures 5 millimeters. The pancreas appears normal. There is no evidence of a stone or hydronephrosis within the right kidney. The right kidney measures 9.3 cm in length. Renal cortex measures 7 millimeters. Procedure Note Clay Ovalle MD - 02/16/2024 For Patients: As a result of the Cures Act, medical imagingexams and procedure reports are released immediately into your electronicmedical record. You may view this report before your referring provider.If you have questions, please contact your health care provider. INDICATION: Right upper quadrant pain COMPARISON: 11/29/2023 TECHNIQUE: Real time laird scale imaging and color Doppler analysis was performed ofthe right upper quadrant. FINDINGS: Simple cyst left hepatic lobe measures 12 x 10 x 13 millimeters. Nosuspicious intrahepatic mass. There is a normal appearance of the hepaticIVC and proximal abdominal aorta. There is no evidence of ascites. Thegallbladder is absent. The visualized common bile duct measures 5millimeters. The pancreas appears normal. There is no evidence of a stoneor hydronephrosis within the right kidney. The right kidney measures 9.3cm in length. Renal cortex measures 7 millimeters. IMPRESSION: Status post cholecystectomy. No biliary obstruction. Incidental simpleintrahepatic cyst. Right renal cortical thinning without hydronephrosis. Dictated by Clay Ovalle MD @ 02/16/2024 3:38:32 PM (Electronically Signed) us Razia Benjaminlori DO US Final Result * XR FOOT 3 VIEWS RIGHT (02/07/2024 3:18 PM CHIEF NUCLEAR MEDICINE TECHNOLOGIST) Anatomical Region Laterality Modality FEET, FOOT R Computed Radiogr aphy 02/07/2024 3:28 PM CHIEF NUCLEAR MEDICINE TECHNOLOGIST Narrative 02/07/2024 3:28 PM CHIEF NUCLEAR MEDICINE TECHNOLOGIST For Patients: As a result of the Cures Act, medical imaging exams and procedure reports are released immediately into your electronic medical record. You may view this report before your referring provider. If you have questions, please contact your health care provider. Indication: Right foot pain. Technique: Right foot 3 views Comparison: None Findings: Solid osseous fusion across the 1st MTP joint. Intact screw fixation hardware. No acute fracture. Chronic deformity of the distal 3rd metatarsal. Spurring at the lateral midfoot. Plantar calcaneal spur. Also spurring at the 2nd MTP joint. Impression: Degenerative joint disease. Solid fusion across the 1st MTP joint. No acute fracture. Dictated by Clay Ovalle MD @ 02/07/2024 3:28:21 PM (Electronically Signed) Procedure Note Clay Ovalle MD - 02/07/2024 For Patients: As a result of the Century Cures Act, medical imagingexams and procedure reports are released immediately into your electronicmedical record. You may view this report before your referring provider.If you have questions, please contact your health care provider. Indication: Right foot pain. Technique: Right foot 3 views Comparison: None Findings: Solid osseous fusion across the 1st MTP joint. Intact screw fixationhardware. No acute fracture. Chronic deformity of the distal 3rdmetatarsal. Spurring at the lateral midfoot. Plantar calcaneal spur. Alsospurring at the 2nd MTP joint. Impression: Degenerative joint disease. Solid fusion across the 1st MTP joint. Noacute fracture. Dictated by Clay Ovalle MD @ 02/07/2024 3:28:21 PM (Electronically Signed) Razia Kelley DO GENERAL IMAGING Final Result * LIPOPROTEIN A (02/07/2024 3:09 PM CHIEF NUCLEAR MEDICINE TECHNOLOGIST) Only the most recent of2 resultswithin the time period is included. LIPOPROTEIN (a) 12 nmol/L [employer]ues [employer] by [employer] Comment: Reference Range <75 Risk: Optimal <75 Moderate 75-125 High >125 Cardiovascular event risk category cut points (optimal, moderate, high) are based on Lucinda Salas JACC 2017;69:692-711. Blood BLOOD SPECIMEN / Unknown 02/07/2024 3:09 PM CHIEF NUCLEAR MEDICINE TECHNOLOGIST 02/07/2024 3:09 PM CHIEF NUCLEAR MEDICINE TECHNOLOGIST Salvador Tineo MD SEND OUTS Final Result [employer] [facility] [address] [place] [address], [facility] [address] [place] [address] * URIC ACID (02/07/2024 3:09 PM CHIEF NUCLEAR MEDICINE TECHNOLOGIST) URIC ACID 4.1 2.5 - 7.0 mg/dL [facility] Comment: Therapeutic target for gout patients: <6.0 mg/dL Blood BLOOD SPECIMEN / Unknown 02/07/2024 3:09 PM CHIEF NUCLEAR MEDICINE TECHNOLOGIST 02/07/2024 3:09 PM CHIEF NUCLEAR MEDICINE TECHNOLOGIST [facility] DO CHEMISTRY Final Result [facility] [address] [place] [address], [facility] [address] [place] [address] * FERRITIN (02/07/2024 3:09 PM CHIEF NUCLEAR MEDICINE TECHNOLOGIST) Pathologist [facility] FERRITIN 117 16 - 288 ng/mL [facility] cassandra Correae Blood BLOOD SPECIMEN / Unknown 02/07/2024 3:09 PM CHIEF NUCLEAR MEDICINE TECHNOLOGIST 02/07/2024 3:09 PM CHIEF NUCLEAR MEDICINE TECHNOLOGIST Rhonda Allie DO CHEMISTRY Final Result Performing Organization Address [facility]/ZIP Co de Phone Number [facility] [employer] [facility] [address] [facility] [place] [place] [address], [place] [phone] [facility] [address] [facility] [place] [address] * HEPATIC FUNCTION PANEL (02/07/2024 3:09 PM CHIEF NUCLEAR MEDICINE TECHNOLOGIST) PROTEIN, TOTAL 6.4 6.1 - 8.1 g/dL [facility] ALBUMIN 4.1 3.6 - 5.1 g/dL [facility] [facility] GLOBULIN 2.3 1.9 - 3.7 g/dL (calc) [facility] ALBUMIN/GLOBULIN RATIO 1.8 1.0 - 2.5 (calc) [facility] BILIRUBIN, TOTAL 0.3 0.2 - 1.2 mg/dL [facility] BILIRUBIN, DIRECT 0.0 < OR = 0.2 mg/dL [facility] BILIRUBIN, INDIRECT 0.3 0.2 - 1.2 mg/dL (calc) [facility] ALKALINE PHOSPHATASE 87 37 - 153 U/L [facility] AST 15 10 - 35 U/L [facility] ALT 18 6 - 29 U/L [facility] Blood BLOOD SPECIMEN / Unknown 02/07/2024 3:09 PM CHIEF NUCLEAR MEDICINE TECHNOLOGIST 02/07/2024 3:09 PM CHIEF NUCLEAR MEDICINE TECHNOLOGIST us Razia Benjaminlori TYLER CHEMISTRY Final Result [employer] [facility] [address] [place] [address], [place] [phone] [employer] [facility] [address] [place] [address] * COVID/FLU/RSV PANEL (01/30/2024 10:41 AM CHIEF NUCLEAR MEDICINE TECHNOLOGIST) COVID 19 [facility] MOLECULAR Negative Negative 01/30/2024 4:46 PM CHIEF NUCLEAR MEDICINE TECHNOLOGIST [facility] Comment:All PCR tests are bowling bject to false negative result due to variability in viral load and collection technique. A negative result does not rule out a SARS-CoV-2 infection. Clinical correlation required. INFLUENZA A PCR Negative 4 4:46 PM CHIEF NUCLEAR MEDICINE TECHNOLOGIST [facility] TR[facility] INFLUENZA B PCR Negative 4:46 PM CHIEF NUCLEAR MEDICINE TECHNOLOGIST [facility] Respiratory Syncytial Virus Negative 01/30/2024 4:46 PM CHIEF NUCLEAR MEDICINE TECHNOLOGIST [facility] Swab NASOPHARYNGEAL SWAB / Unknown Non-Blood / Unknown 01/30/2024 10:41 AM CHIEF NUCLEAR MEDICINE TECHNOLOGIST 01/30/2024 10:51 AM CHIEF NUCLEAR MEDICINE TECHNOLOGIST us Tammi NOVAK MICROBIOLOGY Final Result [facility] [address] [place] [address], [place] * PATH TISSUE EXAM (01/26/2024 10:34 AM CHIEF NUCLEAR MEDICINE TECHNOLOGIST) Case Report Pathology Report Case: [id number] Authorizing Provider: Jacob Sainz MD Collected: 01/26/2024 1034 Ordering Location: [facility] Received: 01/26/2024 1108 Hospital Pathologist: Ki Yancey MD Specimen: Gallbladder 01/30/2024 9:59 AM CHIEF NUCLEAR MEDICINE TECHNOLOGIST [facility] Final Diagnosis A) GALLBLADDER, CHOLECYSTECTOMY: 1. Chronic cholecystitis 2. Cholelithiasis 3. Negative for dysplasia and malignancy 01/30/2024 9:59 AM CHIEF NUCLEAR MEDICINE TECHNOLOGIST [facility] Clinical Information Symptomatic cholelithiasis 01/30/2024 9:59 AM CHIEF NUCLEAR MEDICINE TECHNOLOGIST [facility] Gross Description A) Received fresh labeled with the patient's name and gallbladder, is an 8 x 2.8 x 2.3 cm disrupted gallbladder distended, filled with numerous brown ovoid 0.5 cm average diameter multifaceted:. The gallbladder mucosa is tiwari, mildly hemorrhagic, smooth to velvety. The wall has a 0.1 cm uniform thickness. No lesion is seen. No lymph node is identified. Jumpbasting Canvas Baster sections to include the en face cystic duct margin are submitted in 1 cassette. DPL 01/26/2024 01/30/2024 9:59 AM CHIEF NUCLEAR MEDICINE TECHNOLOGIST [facility] Microscopic Description The final diagnosis is based on microscopic examination of appropriate sections of all specimens. 01/30/2024 9:59 AM CHIEF NUCLEAR MEDICINE TECHNOLOGIST [facility] Additional Information Interpreted at [facility] [employer] [facility] - [address] [place] [address] 01/30/2024 9:59 AM CHIEF NUCLEAR MEDICINE TECHNOLOGIST [facility] [employer] [facility] ENTRAL LAB[facility]ATORY Tissue SPECIMEN FROM GALLBLADDER / Unknown 01/26/2024 10:34 AM CHIEF NUCLEAR MEDICINE TECHNOLOGIST 01/26/2024 11:08 AM CHIEF NUCLEAR MEDICINE TECHNOLOGIST us Jacob Sainz MD PATHOLOGY/CYTOLOGY Richelle cazares Result [facility] [address] [place] [address], [place] * HCHG TUBE PR1, HCHG STYLET PR1 (01/26/2024 10:07 AM CHIEF NUCLEAR MEDICINE TECHNOLOGIST) Narrative Roosevelt Chan CRNA - 01/26/2024 10:07 AM CHIEF NUCLEAR MEDICINE TECHNOLOGIST Roosevelt Chan CRNA 01/26/2024 10:08 AM Procedure: ETT Patient location during procedure: OR ETT Properties Mask Ventilation: easy Final Technique: direct laryngoscopy Type: straight Location: oral Cuffed: yes Tube Size: 7.0 mm Stylet: yes Laryngoscope Blade: Robbins Blade Size: 2 Cormack-Lehane Grade View: 2 Insertion Attempts: 1 Placement Verification: auscultation, end tidal CO2 and symmetrical chest wall movement Assessment: pharynx clear, atraumatic and dentition unchanged Secured at: 21 Measured From: teeth Difficulty: 0 (not difficult) Mick Duval MD ANESTHESIA PX NOTE ORDERABLES Final Result * SCAN-CARDIAC STRIP (01/26/2024 12:00 AM CHIEF NUCLEAR MEDICINE TECHNOLOGIST) Narrative 01/26/2024 12:00 AM CHIEF NUCLEAR MEDICINE TECHNOLOGIST Ordered by an unspecified provider. Other Clinical Staff OTHER Final Resul t * (ABNORMAL) LIPID PANEL (01/12/2024 9:50 AM CHIEF NUCLEAR MEDICINE TECHNOLOGIST) [employer] Signature CHOLESTEROL, TOTAL 179 <200 mg/dL [facility] HDL CHOLESTEROL 53 > OR = 50 mg/dL [facility] [place] TRIGLYCERIDES 130 <150 mg/dL [employer] [facility] LDL-CHOLESTEROL 103(H) mg/dL (calc) [facility] Comment: Reference range: <100 Desirable range <100 mg/dL for primary prevention; <70 mg/dL for patients with CHD or diabetic patients with > or = 2 CHD risk factors. LDL-C is now calculated using the Oscar calculation, which is a validated novel method providing better accuracy than the Friedewald equation in the estimation of LDL-C. Fabian OSWALD et al. MIKO. 2013;310(19): 1150-5835 (http://education.[employer]/faq/KNZ314) CHOL/HDLC RATIO 3.4 <5.0 (calc) [facility] NON HDL CHOLESTEROL 126 <130 mg/dL (calc) [facility] Comment: For patients with diabetes plus 1 major ASCVD risk factor, treating to a non-HDL-C goal of <100 mg/dL (LDL-C of <70 mg/dL) is considered a therapeutic option. Blood BLOOD SPECIMEN / Unknown 01/12/2024 9:50 AM CHIEF NUCLEAR MEDICINE TECHNOLOGIST 01/12/2024 9:52 AM CHIEF NUCLEAR MEDICINE TECHNOLOGIST Narrative [facility] - 01/13/2024 4:59 AM CHIEF NUCLEAR MEDICINE TECHNOLOGIST FASTING:NO FASTING: NO Salvador Tineo MD CHEMISTRY Final Result [employer] [facility] [address] [place] [address], [facility] [address] [place] [address] * SCAN-MAMMOGRAPHY REPORT (02/09/2023 12:00 AM CHIEF NUCLEAR MEDICINE TECHNOLOGIST) Anatomical Region Laterality Modality Other us Scanner OTHER Final Result * COLONOSCOPY (06/09/2021 9:33 AM CDT) 06/09/2021 9:33 AM CDT Narrative Transcriptions Fabian Salter MD - 06/09/2021 10:28 AM CDT Patient Name: Naty Biswas Procedure Date: 06/09/2021 Gender: Female Date of : 1955 Admit Type: Outpatient Procedure: Colonoscopy Proceduralist: Fabian Salter MD , Piper Montoya RN(Nurse) Indications/Pre-Op Diagnosis: High risk colon cancer surveillance:Personal history of sessile serrated colon polyp(less than 10 mm in size) with no dysplasia, Last colonoscopy: June 2016 Medications: Fentanyl 100 micrograms IV, Midazolam 4 mgIV, The level of sedation administered wasmoderate Procedure Description: The patient had risks, benefits and alternatives explained to andgave informed consent. The patient had a stable cardiopulmonary status and judged an adequate candidate for conscious sedation. The colonoscope was passed through the anus and advanced to theterminal ileum. The colonoscopy was performed without difficulty. The patient tolerated the procedure well. The quality of the bowel preparationwas good. The ileocecal valve, appendiceal orifice, and rectum were photographed. Complications: No immediate complications. Estimated Blood Loss & Specimen: Estimated blood loss: none. Specimen collected - None Findings: The perianal and digital rectal examinations were normal. The terminal ileum appeared normal. The entire examined colon appeared normal on direct and retroflexion views. Impressions/Post-Op Diagnosis: - The examined portion of the ileum was normal. - The entire examined colon is normal on direct and retroflexionviews. - No specimens collected. Recommendation: - Patient has a contact number available for emergencies. The signsand symptoms of potential delayed complications were discussed with the patient. Return to normal activities tomorrow. Written discharge instructions were provided to the patient. - Resume previous diet. - Continue present medications. - Repeat colonoscopy in 5 years for surveillance. Moderate Sedation: Moderate (conscious) sedation was administered by the endoscopy nurse and supervised by the endoscopist. The following parameters were monitored: oxygen saturation, heart rate, respiratory rate, blood pressure, adequacy of pulmonary ventilation and reponse to care. Please refer to the patient's medical record flowsheets and nursing notes for moderate sedation details. Total physician intraservice time was 12 minutes. Fabian Salter MD 06/09/2021 10:28:23 AM This report has been signed electronically. Note Initiated On: 06/09/2021 9:33 AM Procedure Code(s): --- Professional --- 25809, Colonoscopy, flexible; diagnostic, including collection of specimen(s) bybrushing or washing, when performed (separateprocedure) Diagnosis Code(s): --- Professional --- Z86.010, Personal history of colonicpolyps CPT copyright 2020 [employer]. All rights reserved. The codes documented in this report are preliminary and upon tester waste disposal leakage reviewmay be revised to meet current compliance requirements. Scope In: 10:07:19 AM Scope Withdrawal Time 0 hours 6 minutes 25 seconds Scope Out: 10:17:35 AM us Fabian Salter MD PROCEDURE ORD Final Res ult * ANTI HCV (04/08/2021 8:53 AM CHIEF NUCLEAR MEDICINE TECHNOLOGIST) HEPATITIS C ANTIBODY Non-React yanet Non-React yanet 04/08/2021 6:29 PM CHIEF NUCLEAR MEDICINE TECHNOLOGIST [facility] Comment:Antibodies to HCV no t detected; does not exclude the possibility of exposure to HCV. Blood BLOOD SPECIMEN / Unknown Venipuncture / Unknown 04/08/2021 8:53 AM CHIEF NUCLEAR MEDICINE TECHNOLOGIST 04/08/2021 8:53 AM CHIEF NUCLEAR MEDICINE TECHNOLOGIST us Cristine Castorena MD SEND OUTS Final Resul t [facility] [address] [place] [address], [place] from Last 3 Months or Most Recently Relevant to Health Maintenance Insurance MEDICARE PART B HB ONLY [employer] [place] BLUE HB ONLY MEDICARE PART A HB ONLY BL[employer] [place] BLUE MR PB ONLY MEDICARE PART A HB ONLY [employer] [place] BLUE HB ONLY MEDICARE PART B HB ONLY WORKERS COMP Advance Directives Documents on File Type Date Recorded Patient Jumpbasting Canvas Baster Expl anation Healthcare Directive 06/01/2018 [facility], 06/01/2018 * Full Code (Latest Code Status on File) Date Activated Date Inactivated Comments 01/26/2024 8:20 AM 01/26/2024 7:56 PM Question Answer Comments Code Status Discussion: Unable to Assess Preferences, Provider to review later * Full Code Date Activated Date Inactivated Comments 07/05/2023 11:19 AM 07/07/2023 6:29 PM Question Answer Comments Code Status Discussion: Reviewed Preferences * Full Code Date Activated Date Inactivated Comments 07/04/2023 11:03 AM 07/05/2023 11:18 AM Question Answer Comments Code Status Discussion: Unable to Assess Preferences, Provider to review later Care Teams Museum Attendant Relationship Specialty Start Date End Date Cristine Castorena MD [address] [place] [address] PCP - General Family Practice 04/08/21
--- OUTSIDE RECORDS SUMMARY | 2024-03-07 13:43 | XMS_ITS | Encounter Summary ---
Author Organization [place] Address [address] [place] [address]. [place] [address] Care Team Providers Care Photovoltaic Subcontractor Name Role Phone ParrSofiajazmin Yaneth Primary Care Provider Unavail able Peng Hubbard MD Unavailable [phone] Zackary Sunshine MD Unavailable [phone] Yamila Joe MD Unavailable Cristine Castorena MD Primary Care Provider [phone] Yamila Joe MD Unavailable Corbin Andre MD Unavailable [phone] Yamila Joe MD Unavailable [phone] Valerie Shin MD Unavailable Adrian Martínez MD Unavailable [phone] Magdalena Fonseca Unavailable Adrian Martínez MD Unavailable Encounter Details Date Type Department Care Team (Late st Contact Info) Description 02/04/2021 [facility] [address] [place] [address] Rita Zavala Social History Tobacco Use Types Packs/Day Years Used Date Smoking Tobacco: Never Smokeless Tobacco: Never Alcohol Use Standard Drinks/Week Comments Yes 0 (1 standard drink = 0.6 oz pur e alcohol) occas PHQ-2 Answer Date Recorded PHQ-2 Score 2 01/15/2021 Comments No Sex and Gender Information Value Date Recorded Sex Assigned at Female 01/12/2021 8:43 AM DYNAMOMETER TESTER ENGINE Legal Sex Female 3:39 AM DYNAMOMETER TESTER ENGINE Gender Identity Female 01/12/2021 8:43 AM DYNAMOMETER TESTER ENGINE Sexual Orientation Straight 01/12/2021 8: 43 AM DYNAMOMETER TESTER ENGINE COVID-19 Exposure Response Date Recorded In the last month, have you been in contact with someone who was confirmed or suspected to have Coronavirus / COVID-19? No / Unsure 02/05/2021 9:28 AM DYNAMOMETER TESTER ENGINE documented as of this encounter Plan of Treatment Upcoming Encounters Date Type Department Care Team (Late st Contact Info) Description 02/18/2025 9:30 AM DYNAMOMETER TESTER ENGINE Office Visit [address] [phone] Valerie Shin MD [address] [id number] 02/18/2025 10:00 AM DYNAMOMETER TESTER ENGINE Ancillary Procedure [facility] [address] [place] [phone] documented as of this encounter Visit Diagnoses Not on filedocumented in this encounter Additional Health Concerns Assessment Noted Time PHQ-9 Depression Total Score: 4 01/16/20 21 3:10 PM DYNAMOMETER TESTER ENGINE documented as of this encounter Care Teams Photovoltaic Subcontractor Relationship Specialty Start Date End Date Yaneth Horne PCP - General Nurse Practitioner 12/14/17 04/23/21 Cristine Castorena MD [address] [address] PCP - General 04/24/21 [place] [address] [place] [address] Assigned OBGYN Provider 11/30/1901/22 Zackary Sunshine MD [address] [place] [address] Assigned Surgical Provider 02/08/21 05/02/21 Yamila Joe MD [address] [place] [address] Urology 04/14/21 Yamila Joe MD [address] [facility] [address] [place] [address] Assigned Surgical Provider 05/03/21 06/20/21 Corbin Andre MD [address] [place] [address] Assigned Surgical Provider 06/21/21 07/17/21 Yamila Joe MD [address] [facility] [address] [place] [address] Assigned Surgical Provider 07/18/21 09/29/23 Valerie Shin MD [address] [place] [address] Assigned OBGYN Provider 01/23/22 Adrian Martínez MD 420 [facility] [address] [place] [address] Colon & Rectal 02/11/23 Magdalena Fonseca EP [facility] [address] [place] [address] Cardiac Rehabilitation Therapist 08/25/23 08/24/24 Adrian Martínez MD [address] [place] [address] [address] [place], [place] [address] Assigned Surgical Provider 09/30/23 documented as of this encounter
--- OUTSIDE RECORDS SUMMARY | 2024-03-07 13:43 | XMS_ITS | Encounter Summary ---
Author Organization [place] Address [address] [place] [address]. [place] [address] Care Team Providers Care Bridge Crane Operator Name Role Phone Yamila Joe MD Unavailable [phone] Cristine Castorena MD Primary Care Provider Valerie hSin MD Unavailable Adrian Martínez MD Unavailable Magdalena Fonseca Unavailable Adrian Martínez MD Unavailable Encounter Details Date Type Department Care Team (Latest Contact Info) Description 02/12/2024 Travel Social History Tobacco Use Types Packs/Day Years [...] Sex Assigned at Female 01/12/2021 8:43 AM DIRECTOR OF PUBLIC WORKS Legal Sex Female 3:39 AM DIRECTOR OF PUBLIC WORKS Gender Identity Female 01/12/2021 8:43 AM DIRECTOR OF PUBLIC WORKS Sexual Orientation Straight 01/12/2021 8: 43 AM DIRECTOR OF PUBLIC WORKS documented as of this encounter Plan of Treatment Upcoming Encounters Date Type Department Care Team (Late st Contact Info) Description 02/18/2025 9:30 AM DIRECTOR OF PUBLIC WORKS Office Visit [facility] [address] [facility] [address] [place] [phone] Valerie Shin MD [address] [facility] [address] [place] [address] 02/18/2025 10:00 AM DIRECTOR OF PUBLIC WORKS Ancillary Procedure [facility] [address] [facility] [address] [place] [phone] documented as of this encounter Visit Diagnoses Not on filedocumented in this encounter Additional Health Concerns Assessment Noted Time PHQ-9 Depression Total Score: 1 02/09/19 24 10:29 AM DIRECTOR OF PUBLIC WORKS documented as of this encounter Care Teams Bridge Crane Operator Relationship Specialty Start Date End Date Cristine Castorena MD [address] [address] PCP - General 04/24/21 Yamila Joe MD Urology 04/14/21 Valerie Shin MD [address] [facility] [address] [place] [address] Assigned OBGYN Provider 01/23/22 Adrian Martínez MD [address] [place] [address] [address] [place] [address] Colon & Rectal 02/11/23 Magdalena Fonseca EP [facility] [address] [place] [address] Cardiac Rehabilitation Therapist 08/25/23 08/24/24 Adrian Martínez MD [address] [place] [address] Assigned Surgical Provider 09/30/23 documented as of this encounter
--- OUTSIDE RECORDS SUMMARY | 2024-03-07 13:43 | XMS_ITS | Encounter Summary ---
Author Organization [place] Address [address] [place] [address]. [place] [address] Care Team Providers Care Arch Support Maker Name Role Phone Yamila Joe MD Unavailable [phone] Cristine Castorena MD Primary Care Provider [phone] Valerie Shin MD Unavailable Adrian Martínez MD Unavailable Magdalena Fonseca Unavailable [phone] Adrian Martínez MD Unavailable Reason for Visit * Diagnostic Imaging Mammo (Routine) - Pending Review Specialty Diagnoses / Procedures Referred By Contac t Referred To Contact Radiology. Diagnoses Visit for screening mammogram Procedures MA Screen Bilateral w/Mesha Valerie Shin MD [address] [facility] [address] [place] [address] Phone: tel: fax: Referral ID Status Reason Start Date Expiration Date V isits Requested Visits Authorized [id number] Pending Review 02/09/2024 02/08/2025 1 1 Encounter Details Date Type Department Care Team (Latest Contact Info) Description 02/17/2024 11:[address] MAGISTRATE Ancillary Procedure [facility] [place] [address] [place] [address], [address] [place] [address] Visit for screening mammogram Social History Tobacco Use Types Packs/Day Years [...] Sex Assigned at Female 01/12/2021 8:[address] MAGISTRATE Legal Sex Female 3:[address] MAGISTRATE Gender Identity Female 01/12/2021 8:[address] MAGISTRATE Sexual Orientation Straight 01/12/2021 8: [address] MAGISTRATE documented as of this encounter Plan of Treatment Upcoming Encounters Date Type Department Care Team (Late st Contact Info) Description 02/18/2025 9:[address] MAGISTRATE Office Visit [place] [address] [place] [phone] Valerie Shin MD [address] [facility] [address] [place] [address] 02/18/2025 10:[address] MAGISTRATE Ancillary Procedure [address] [place] [phone] documented as of this encounter Procedures Procedure Name Priority Date/Time Associated Diagnosis Comments MA SCREENING BILATERAL W/ MESHA Routine 02/17/2024 11:[address] MAGISTRATE Visit for screening mammogram documented in this encounter Results * MA Screen Bilateral w/Mesha (02/17/2024 11:[address] MAGISTRATE) Anatomical Region Laterality Modality Breast Bilateral Mammography Impressions 02/17/2024 2:[address] MAGISTRATE IMPRESSION: ACR BI-RADS Category 1: Negative BREAST CANCER SCREENING RECOMMENDATION: Routine yearly mammography beginning at age 40 or as discussed with your provider. The results and recommendations of this examination will be communicated to the patient. Dominique Laguerre MD Narrative 02/17/2024 2:[address] MAGISTRATE BILATERAL FULL FIELD DIGITAL SCREENING MAMMOGRAM WITH TOMOSYNTHESIS Performed on: 02/17/24 Compared to: 02/09/2023, 01/19/2022, 01/15/2021, and 01/14/2020 Technique: This study was evaluated with the assistance of Computer-Aided Detection. Breast Tomosynthesis was used in interpretation. Findings: There are scattered areas of fibroglandular density. There is no radiographic evidence of malignancy. us Valerie Shin MD IMG MAMMOGRAPHY ORDERABLES Final Result documented in this encounter Visit Diagnoses Diagnosis Visit for screening mammogram Other screening mammogram documented in this encounter Additional Health Concerns Assessment Noted Time PHQ-9 Depression Total Score: 1 02/09/19 10:[address] MAGISTRATE documented as of this encounter Care Teams Arch Support Maker Relationship Specialty Start Date End Date Cristine Castorena MD [facility] [address] [place] [address] PCP - General 04/24/21 Yamila Joe MD Urology 04/14/21 Valerie Shin MD [address] [facility] [address] [place] [address] Assigned OBGYN Provider 01/23/22 Adrian Martínez MD [address] [place] [address] [address] [place] [address] Colon & Rectal 02/11/23 Magdalena Fonseca EP [facility] [address] [place] [address] Cardiac Rehabilitation Therapist 08/25/23 08/24/24 Adrian Martínez MD [address] [place] [address] Assigned Surgical Provider 09/30/23 documented as of this encounter
== END 2024-03-06 14:33 | disposition home or self-care (01) ==
PROVIDERS: Emergency Provider Emergency Medicine; PCP Family Medicine
DX: R07.9 Chest pain, unspecified (principal); I77.819 Aortic ectasia, unspecified site
CPT/HCPCS: 36415; 71046; 71275; 80053; 83690; 84484; 85379; 93005; 99284; 99285; A9270; Q9967

== ENCOUNTER 2024-11-06 10:15 | Outpatient (RCR) | payer MEDICARE, BC, SELFPAY | END 2024-12-10 16:40 | disposition home or self-care (01) | PROVIDERS: PCP Family Medicine; Visit Provider Physician Assistant | DX: Z47.1 Aftercare following joint replacement surgery (principal); M54.50 Low back pain, unspecified; M25.551 Pain in right hip; M25.552 Pain in left hip; M53.3 Sacrococcygeal disorders, not elsewhere classified; M79.605 Pain in left leg; Z51.89 Encounter for other specified aftercare | CPT/HCPCS: 97110; 97140; 97161 ==